=== PATIENT | male | born 1980 | race African-American/Black ===

== ENCOUNTER 2018-05-24 13:37 | Inpatient (IN) | payer OTHER ==
[2018-05-24 14:26] VITALS: BMI 29.4
--- NOTE | 2018-05-24 15:24 | HP ---
CIWA Score Nausea/Vomitin-No Nausea/No Vomiting Muscle Tremors: None Anxiety: 0-No Anxiety, at Ease Agitation: 0-Normal Activity Paroxysmal Sweats: No Perspiration Orientation: 0-Oriented Tacttile Disturbances: 0-None Auditory Disturbances: 0-None Visual Disturbances: 0-None Headache: 0-None Present CIWA-Ar Total Score: 0 - Admission Criteria OASAS Guidelines: Admission for Medically Managed Detox: Requires at least one of the followin. CIWA greater than 12 2. Seizures within the past 24 hours 3. Delirium tremens within the past 24 hours 4. Hallucinations within the past 24 hours 5. Acute intervention needed for co occurring medical disorder 6. Acute intervention needed for co occurring psychiatric disorder 7. Severe withdrawal that cannot be handled at a lower level of care (continued vomiting, continued diarrhea, abnormal vital signs) requiring intravenous medication and/or fluids 8. [facility] Allergies/Adverse Reactions: Allergies Allergy/AdvReac Type Severity Reaction Status Date / Time No Known Allergies Allergy Verified 05/24/18 16:57 History of Present Illness: pt here requesting detox from ETOH use , reports was at [facility] brought to this facility from ER . ETOH use : 2 beers for the past 5 days , prior incarceration at [facility] x 8 months , denies current legal issues . Currently asymptomatic cocaine : 80 $ /day , denies IVDU , first age of use 20 cannabis use : sicen age 13 , currently 2 joints in the last 5 days tobacco : daily 1/4-1/2 ppd . utox + thc, + abigail, + bzo jennyfer 0.000 PMHx : right inguinal and umbilical hernia current, reports discomfort w/ eating PSHx : left inguinal hernia in 20's psych : SAD Meds : in the past Zoloft , Seroquel , latest 2 d ago SHx : lives in skilled nursing , unemployed , finances habit through " multiple means " Exam Limitations: No Limitations - Ebola screening Have you traveled outside of the country in the last 21 days: No Have you had contact with anyone from an Ebola affected area: No Have you been sick,other than usual withdrawal symptoms: No - Review of Systems Constitutional: No Symptoms Reported EENT: reports: No Symptoms Reported Respiratory: reports: No Symptoms reported Cardiac: reports: No Symptoms Reported GI: reports: No Symptoms Reported : reports: No Symptoms Reported Musculoskeletal: reports: No Symptoms Reported Integumentary: reports: No Symptoms Reported Neuro: reports: No Symptoms reported Endocrine: reports: No Symptoms Reported Hematology: reports: No Symptoms Reported Psychiatric: reports: No Sypmtoms Reported Patient History - Patient Medical History Hx Anemia: Yes (NO CURRENT SUPPLEMENTS) Hx Asthma: Yes (MDI) Hx Chronic Obstructive Pulmonary Disease (COPD): No Hx Cardiac Disorders: No Hx Hypertension: No Hx Hypercholesterolemia: No HX Cerebrovascular Accident: No Hx Seizures: No Hx Diabetes: No Hx Gastrointestinal Disorders: No Hx Genitourinary Disorders: No Hx Sexually Transmitted Disorders: No Hx Renal Disease (ESRD): No Hx Thyroid Disease: No Hx Human Immunodeficiency Virus (HIV): No (NEGATIVE HX) Hx Hepatitis C: No Hx Depression: Yes (NO CURRENT MEDS BUT IN THE PAST---SEROQUEL AND ZOLOFT) Hx Suicide Attempt: No (DENIES PAST OR PRESENT /H/I TODAY) Hx Schizophrenia: Yes (schizoaffective disorder) - Patient Surgical History Past Surgical History: Yes Hx Neurologic Surgery: No Hx Cataract Extraction: No Hx Cardiac Surgery: No Hx Lung Surgery: No Hx Breast Surgery: No Hx Breast Biopsy: No Hx Abdominal Surgery: No Hx Appendectomy: No Hx Cholecystectomy: No Hx Genitourinary Surgery: No Hx Section: No Hx Orthopedic Surgery: No Other Surgical History: left inguinal hernia in 2003 Anesthesia Reaction: No - PPD History Date: 08/04/17 - Smoking Cessation Smoking history: Current every day smoker Have you smoked in the past 12 months: Yes Aproximately how many cigarettes per day: 20 Hx Chewing Tobacco Use: No Initiated information on smoking cessation: No - Substances Abused Crack Route: Smoking Frequency: Daily Amount used: $80-100 Age of first use: 20 Date of Last Use: 05/23/18 Marijuana Route: Smoking Frequency: 1-2 times per week Amount used: $10 Age of first use: 13 Date of Last Use: 05/23/18 Family Disease History - Family Disease History Family Disease History: CA: Grandparent ( ), Father (HTN;PROSTATE-ALIVE) , Mother (OVARIAN-ALIVE), Other: Father Admission Physical Exam BHS - Vital Signs Vital Signs: Vital Signs - 24 hr 05/24/18 14:24 Temperature 97 F L Pulse Rate 97 H Respiratory 18 Rate Blood Pressure 130/70 - Physical General Appearance: Yes: No Apparent Distress HEENTM: Yes: EOMI, Hearing grossly Normal, Normal ENT Inspection, Normocephalic , Normal Voice Respiratory: Yes: Chest Non-Tender, Lungs Clear, Normal Breath Sounds Neck: Yes: No masses,lesions,Nodules, Trachea in good position Breast: Yes: Breast Exam Deferred Cardiology: Yes: Regular Rhythm, Regular Rate, S1, S2 Abdominal: Yes: Hernia (right inguinal hernia , soft to palpation , large , no tenderness to palpation supra-umbilical hernia reducible, no tenderness to palpation. patient declined referral to ER at this time, states not interested in surgery , advised to see nursing/ medical staff for any symptoms - abdominal pain, nausea/ vomiting/ constipation . Patient verablizes undertadning and agreement .) Genitourinary: Yes: Within Normal Limits Back: Yes: Within Normal Limits Musculoskeletal: Yes: Within Normal Limits Extremities: Yes: Within Normal Limits, Normal Range of Motion Neurological: Yes: Fully Oriented, Alert, Motor Strength 5/5 Integumentary: Yes: Normal Color, Dry, Warm Lymphatic: Yes: Within Normal Limits - Diagnostic (1) Cocaine dependence, uncomplicated Current Visit: No Status: Chronic (2) Nicotine dependence Current Visit: No Status: Chronic Qualifiers: Nicotine product type: cigarettes Substance use status: uncomplicated Qualified Code(s): F17.210 - Nicotine dependence, cigarettes, uncomplicated BHS Breath Alcohol Content Breath Alcohol Content: 0 Urine Drug Screen - Results Drug Screen Negative: No Urine Drug Screen Results: THC-Marijuana, ABIGAIL-Cocaine, BZO-Benzodiazepines Inpatient Rehab Admission - Initial Determination Are CD services needed?: Yes Free of communicable disease: Yes Not in need of hospitalization: Yes - Rehab Admission Criteria Previous failed treatment: Yes Poor recovery environment: Yes Comorbidities: Yes Lacks judgement: Yes Patient is meeting Inpatient Rehab admission criteria:: Yes
[2018-05-24] MEDS ORDERED: MAGNESIUM HYDROX 2400MG/30ML ORAL SUSPENSION 30 ML CUP PO PRN (17:10)
[2018-05-24] MEDS ORDERED: MAG HYDROX/AL HYDROX/SIMETH 30 ML UNIT-DOSE CUP PO PRN (17:10)
[2018-05-24] MEDS ORDERED: ACETAMINOPHEN 325 MG TABLET (FP) PO PRN (17:10)
[2018-05-24] MEDS ORDERED: guaiFENesin/D-METHORPHAN HB 10 ML UNIT-DOSE CUPS PO PRN (17:10)
[2018-05-24] MEDS ORDERED: IBUPROFEN 400 MG TABLET (FP) PO PRN (17:10)
[2018-05-24] MEDS ORDERED: MAGNESIUM CITRATE 300 ML BOTTLE PO PRN (17:10)
[2018-05-24] MEDS ORDERED: P-EPHED 60MG/TRIPROLIDI 2.5MG TABLET PO PRN (17:10)
[2018-05-24] MEDS ORDERED: MELATONIN 5 MG TABLETS PO PRN (22:00)
[2018-05-24] MEDS: THIAMINE HCL 100 MG TABLET (FP) PO SCH (22:12)
[2018-05-25 01:39] LABS: URINE APPEARANCE CLEAR; URINE BILIRUBIN NEGATIVE (<2.0 mg/dL); URINE COLOR YELLOW; URINE GLUCOSE (UA) NEGATIVE (NEGATIVE); URINE KETONE 2+ (NEGATIVE); URINE LEUK ESTERASE NEGATIVE (NEGATIVE); URINE NITRITE NEGATIVE (NEGATIVE); URINE PROTEIN 1+ (NEGATIVE); URINE UROBILINOGEN 4.0 E.U/dl mg/dL (0.2-1.0)
[2018-05-25 02:05] LABS: EPI CELLS RARE /HPF (FEW); URINE MUCUS MANY
--- NOTE | 2018-05-25 08:23 | HP ---
Psychiatrist Admission - Data Date of interview: 05/25/18 Admission source: [facility] Identifying data: This is the first [facility] admission for this 37 years old single Black male, father of 2 children, unemployed on public assistance, homeless Medical History: Significant for anemia, bronchial asthma, right inguinal and umbilical hernias and a history of left inguinal herniorraphy. Smokes cigaretted 1 ppd Psychiatric History: Patient reports being diagnosed with Schizoaffective Disorder in his 20's when he was admitted to a psychiatric hospital for visual hallucinations. He has no recollection of that hospital name or location. Reports multiple subsequent admissions to various facilities including to [facility], [facility] and most recently approximately 8 months ago to [facility]. Reports that he was incarcerated from 09/14/17 to . Told lead technical writer that he saw a psychiatrist while in correction and was prescribed Zoloft 50 mg po daily and Seroquel 300 mg po HS. Before going to correction, he attended [facility] in [place]. Denies history of suicidal attempt. At present, reports feeling depressed and sleeping poorly. However, denies wxperiencing psychotic or manic symptoms, S/H ideations Physical/Sexual Abuse/Trauma History: Denies history of emotional, physical or sexual abuse as well as DV relationship. No service Additional Comment: Reports history of multiple previous arrests including 2 felony convictions. No parole/probation at present Vital Signs: Vital Signs - 24 hr 05/24/18 05/24/18 05/25/18 14:24 18:00 00:30 Temperature 97 F L 98.0 F Pulse Rate 97 H 92 H Respiratory 18 Rate Blood Pressure 130/70 109/70 05/25/18 06:48 Temperature 98.4 F Pulse Rate 90 Respiratory 19 Rate Blood Pressure 114/66 Allergies/Adverse Reactions: Allergies Allergy/AdvReac Type Severity Reaction Status Date / Time No Known Allergies Allergy Verified 05/24/18 16:57 Date of last physical exam: 05/24/18 Concur with the findings of this exam: Yes - Substance Abuse/Tx History Hx Alcohol Use: Yes Hx Substance Use: Yes Substance Use Type: Alcohol (Started drinking alcohol at age 13, consumes 2-3 pints of vodka & a 6pk of beer daily), Cocaine (Started smoking crack cocaine at age 20, consumes $80-100worth daily. Last smoked on 05/23/18), Marijuana ( Started smoking marijuana at age 13, consumes $10 worth 1-2 times weekly. Last smoked on 05/23/18) Hx Substance Use Treatment: Yes (5-6 previous & 5 inpt rehab admissions) Mental Status Exam - Mental Status Exam Alert and Oriented to: Time, Place, Person Cognitive Function: Fair Patient Appearance: Well Groomed Mood: Depressed Affect: Appropriate Patient Behavior: Cooperative Speech Pattern: Clear Voice Loudness: Normal Thought Process: Intact Thought Disorder: Not Present Hallucinations: Denies Suicidal Ideation: Denies Homicidal Ideation: Denies Insight/Judgement: Fair Sleep: Poorly Appetite: Fair Muscle strength/Tone: Normal Gait/Station: Normal Psychiatric Findings - Problem List (Clark 1, 2,3) (1) Alcohol dependence Current Visit: Yes Status: Acute (2) Cocaine dependence Current Visit: Yes Status: Acute (3) Cannabis dependence Current Visit: Yes Status: Acute (4) Nicotine dependence Current Visit: Yes Status: Chronic (5) Schizoaffective disorder Current Visit: No Status: Chronic Comment: As per self-report.Patient is on medications.Known to [facility]. (6) Substance induced mood disorder Current Visit: Yes Status: Acute (7) Substance-induced sleep disorder Current Visit: Yes Status: Acute (8) Asthma Current Visit: No Status: Chronic Qualifiers: Asthma severity: mild Asthma persistence: unspecified Asthma complication type: uncomplicated Qualified Code(s): J45.909 - Unspecified asthma, uncomplicated (9) Anemia Current Visit: Yes Status: Acute (10) Inguinal hernia, right Current Visit: Yes Status: Acute (11) Umbilical hernia Current Visit: Yes Status: Acute - Initial Treatment Plan Initial Treatment Plan: 1) Continue Zoloft 50 mg po daily and Seroquel 300 mg po HS. 2) Monitor progress
[2018-05-25 10:08] LABS: HEMATOCRIT 44.2 % (35.4-49); HEMOGLOBIN 14.5 GM/dL (11.7-16.9); MCH 28.7 pg (25.7-33.7); MCHC 32.7 g/dl (32.0-35.9); MEAN CELL VOLUME 87.7 fl (80-96); MEAN PLT VOLUME 7.7 fl (7.5-11.1); PLATELET COUNT 294 K/MM3 (134-434); RBC 5.04 M/mm3 (4.00-5.60); RDW 14.3 % (11.9-15.9); WHITE BLOOD COUNT 5.4 K/mm3 (4.0-10.0)
[2018-05-25] MEDS: PRENATAL VITAMINS W/ FOLIC ACID TABLET (FP) PO SCH (10:41)
[2018-05-25] MEDS: SERTRALINE HCL 50 MG TABLET (FP) PO SCH (10:41)
--- NOTE | 2018-05-25 11:30 | PN ---
S Progress Note Note: PT C/O RIGHT GROIN PAIN. HX RIGHT INGUINAL HERNIA AND LEFT INGUINAL HERNIA REPAIR IN THE PAST. PT WAS ADMITTED YESTERDAY AND REPORTS DISCOMFORT UNCHANGED FROM YESTERDAY ON ADMISSION BUT WANTS CANE FOR AMBULATION BECAUSE FORGOT HIS CANE. AMBULATING WITH A BEND FORWARD GAIT INTERMITTENTLY WHEN FEELING PAIN WHICH HE PUTS AT A SCALE OF 5, 6 OR 7. PT REPORTS HAS CONDITION WHILE 8 MONTHS IN [facility] AND JUST GOT OUT AND NOT CONNECTED TO A MEDICAL PROVIDER YET. PT REPORTS HOWEVER THAT [facility] IS AN OPTION FOR HIM TO FOLLOW UP ROUTINELY AFTER REHAB TREATMENT. PT WAS INFORMED HE COULD BE SENT TO [facility] ED FOR EVALUATION BUT HE STATES "I'LL BE OK'. IT IS NOT ALL THAT BAD". PT DENIES N/ V OR FEVER. PT HAS BEEN TOLD THAT IF CONDITION CHANGES HE SHOULD INFORM THE STAFF FOR TRANSFER TO THE ED. Vital Signs 05/25/18 06:48 Temperature 98.4 F Pulse Rate 90 Respiratory 19 Rate Blood Pressure 114/66 Laboratory Tests 05/24/18 05/25/18 23:45 07:00 WBC 5.4 RBC 5.04 Hgb 14.5 Hct 44.2 MCV 87.7 MCH 28.7 MCHC 32.7 RDW 14.3 Plt Count 294 MPV 7.7 Urine Color Yellow Urine Appearance Clear Urine pH 6.0 Ur Specific [place] 1.033 Urine Protein 1+ H Urine Glucose (UA) Negative Urine Ketones 2+ H Urine Blood Negative Urine Nitrite Negative Urine Bilirubin Negative Urine Urobilinogen 4.0 e.u/dl Ur Leukocyte Esterase Negative Urine WBC (Auto) 1 Urine RBC (Auto) <1 Ur Epithelial Cells Rare Urine Mucus Many LABS NOTED ABOVE, WNL GROIN:LARGE PAINFUL BULGE TO RIGHT INGUINAL AREA ON STANDING/PALPATION. IMPRESSION:ENLARGED RIGHT INGUINAL HERNIA WITH PAIN. NOT STRANGULATED PLAN:INSTRUCTED PT NOT TO LIFT REPORT N/V REPORT MODERATE TO SEVER PAIN TRANSFER PT TO [facility] IF CONDITION CHANGES.
[2018-05-25 11:40] LABS: ALBUMIN 3.4 g/dl (3.4-5.0); ALK PHOS 74 U/L (45-117); ANION GAP 7 MMOL/L (8-16); BILIRUBIN,TOTAL 0.4 mg/dL (0.2-1); BLOOD UREA NITROGEN 13 mg/dL (7-18); CALCIUM 8.2 mg/dL (8.5-10.1); CHLORIDE 107 mmol/L (98-107); CO2 24 mmol/L (21-32); CREATININE 0.8 mg/dL (0.55-1.3); GLUCOSE,RANDOM 94 mg/dL (74-106); POTASSIUM 4.6 mmol/L (3.5-5.1); SGOT/AST 24 U/L (15-37); SGPT/ALT 39 U/L (13-61); SODIUM 138 mmol/L (136-145); TOT PROT 6.4 g/dl (6.4-8.2)
[2018-05-25] MEDS: THIAMINE HCL 100 MG TABLET (FP) PO SCH (21:23)
[2018-05-25] MEDS: QUEtiapine FUMARATE 300 MG TABLET PO SCH (21:23)
[2018-05-26] MEDS: PRENATAL VITAMINS W/ FOLIC ACID TABLET (FP) PO SCH (10:27)
[2018-05-26] MEDS: SERTRALINE HCL 50 MG TABLET (FP) PO SCH (10:27)
[2018-05-26] MEDS: MENTHOL/PHENOL 1 EACH UD MM PRN ×2 (10:28→21:39)
[2018-05-26] MEDS: THIAMINE HCL 100 MG TABLET (FP) PO SCH (21:38)
[2018-05-26] MEDS: QUEtiapine FUMARATE 300 MG TABLET PO SCH (21:38)
[2018-05-27] MEDS: PRENATAL VITAMINS W/ FOLIC ACID TABLET (FP) PO SCH (10:00)
[2018-05-27] MEDS: SERTRALINE HCL 50 MG TABLET (FP) PO SCH (10:00)
[2018-05-27] MEDS: THIAMINE HCL 100 MG TABLET (FP) PO SCH (21:26)
[2018-05-27] MEDS: QUEtiapine FUMARATE 300 MG TABLET PO SCH (21:26)
[2018-05-27] MEDS: MENTHOL/PHENOL 1 EACH UD MM PRN (21:27)
[2018-05-28] MEDS: PRENATAL VITAMINS W/ FOLIC ACID TABLET (FP) PO SCH (09:45)
[2018-05-28] MEDS: SERTRALINE HCL 50 MG TABLET (FP) PO SCH (09:45)
[2018-05-28] MEDS: THIAMINE HCL 100 MG TABLET (FP) PO SCH (21:26)
[2018-05-28] MEDS: QUEtiapine FUMARATE 300 MG TABLET PO SCH (21:27)
[2018-05-28] MEDS: MENTHOL/PHENOL 1 EACH UD MM PRN (21:28)
[2018-05-29] MEDS: PRENATAL VITAMINS W/ FOLIC ACID TABLET (FP) PO SCH (10:02)
[2018-05-29] MEDS: SERTRALINE HCL 50 MG TABLET (FP) PO SCH (10:02)
[2018-05-29] MEDS: QUEtiapine FUMARATE 300 MG TABLET PO SCH (21:23)
[2018-05-29] MEDS: THIAMINE HCL 100 MG TABLET (FP) PO SCH (21:23)
[2018-05-29] MEDS: MENTHOL/PHENOL 1 EACH UD MM PRN (21:24)
[2018-05-30 07:02] VITALS: BP 117/86; PULSE 83; TEMP 97.8
[2018-05-30] MEDS: SERTRALINE HCL 50 MG TABLET (FP) PO SCH (09:16)
[2018-05-30] MEDS: PRENATAL VITAMINS W/ FOLIC ACID TABLET (FP) PO SCH (09:16)
--- NOTE | 2018-05-30 10:10 | PN ---
[facility] Progress Note Note: PT REQUESTING TO LEAVE TREATMENT TODAY STATING HE WANTS TO GET THINGS DONE TODAY BEFORE THE HOLIDAYS. PT WAS ADMITTED 05/24/18. ALL EFFORTS BY THIS VEGETABLE LOADER AND NURSE,VAN ENCOURAGING PATIENT TO CONTINUE TREATMENT WAS UNSUCCESSFUL. PT IS AMBULATING UPRIGHT WITH NO DISCOMFORT AND HAS NOT COMPLAINED ABOUT HERNIA PAIN SINCE LAST EPISODE. PT STATES HE WILL FOLLOW UP WITH MEDICAL CARE AT [facility] AFTER DISCHARGE. ALERT O X 3. Vital Signs 05/30/18 05/30/18 03:30 07:00 Temperature 97.8 F Pulse Rate 83 Respiratory 18 18 Rate Blood Pressure 117/86 NAD PLAN:PT SIGNED OUT AMA REMINDED TO FOLLOW UP AT [facility] FOR PRIMARY CARE AND EVALUATION/TREATMENT OF RIGHT INGUINAL HERNIA PROBLEM IN 1-2 WEEKS AFTER DISCHARGE.
== END 2018-05-30 10:01 | disposition left against medical advice (07) | DRG 770 ==
LOC: YASAS 13:37 → Y5N 17:13
PROVIDERS: ADMIT Psychiatry & Neurology Psychiatry; ATTEND Psychiatry & Neurology Psychiatry
PROC: HZ42ZZZ Group Counseling for Substance Abuse Treatment, Cognitive-Behavioral (ICD-10-PCS; principal; 2018-05-24)
DX: F10.20 Alcohol dependence, uncomplicated (principal); F14.20 Cocaine dependence, uncomplicated; F12.20 Cannabis dependence, uncomplicated; F17.210 Nicotine dependence, cigarettes, uncomplicated; F25.9 Schizoaffective disorder, unspecified; F19.24 Other psychoactive substance dependence with psychoactive substance-induced mood disorder; F19.282 Other psychoactive substance dependence with psychoactive substance-induced sleep disorder; J45.909 Unspecified asthma, uncomplicated; D64.9 Anemia, unspecified; K40.90 Unilateral inguinal hernia, without obstruction or gangrene, not specified as recurrent; K42.9 Umbilical hernia without obstruction or gangrene; Z59.0 Homelessness
CPT/HCPCS: 36415; 80053; 81003; 81015; 85027; 86593

== ENCOUNTER 2018-07-13 08:24 | Inpatient (IN) | payer OTHER ==
[2018-07-13 08:50] VITALS: BMI 24.3
--- NOTE | 2018-07-13 08:58 | HP ---
CIWA Score Nausea/Vomitin Muscle Tremors: 2 Anxiety: 2 Agitation: 2 Paroxysmal Sweats: 1-Minimal Palms Moist Orientation: 0-Oriented Tacttile Disturbances: 1-Very Mild Itch/Numbness Auditory Disturbances: 1-Very Mild Visual Disturbances: 0-None Headache: 2-Mild CIWA-Ar Total Score: 13 - Admission Criteria OASAS Guidelines: Admission for Medically Managed Detox: Requires at least one of the followin. CIWA greater than 12 2. Seizures within the past 24 hours 3. Delirium tremens within the past 24 hours 4. Hallucinations within the past 24 hours 5. Acute intervention needed for co occurring medical disorder 6. Acute intervention needed for co occurring psychiatric disorder 7. Severe withdrawal that cannot be handled at a lower level of care (continued vomiting, continued diarrhea, abnormal vital signs) requiring intravenous medication and/or fluids 8. Patient presents the following: CIWA greater than 12 Admission Criteria Met: Admission criteria met Admission ROS BHS - HPI Chief Complaint: i need help to stop drinking alcohol,cocaine and marijuana Allergies/Adverse Reactions: Allergies Allergy/AdvReac Type Severity Reaction Status Date / Time No Known Allergies Allergy Verified 07/13/18 09:06 History of Present Illness: this 37 years old male with alcohol,cocaine and marijuana dependence,seeking detox,withdrawal symptom,last treatment rehab [facility] 05/24/18 to 05/30/18 syncope nicotine dependence weight loss longest period 3 years plan for rehab after detox Exam Limitations: No Limitations - Ebola screening Have you traveled outside of the country in the last 21 days: No Have you had contact with anyone from an Ebola affected area: No Have you been sick,other than usual withdrawal symptoms: No Do you have a fever: No - Review of Systems Constitutional: Malaise, Night Sweats, Changes in sleep, Weakness, Unintentional Wgt. Loss EENT: reports: Nose Congestion Respiratory: reports: No Symptoms reported Cardiac: reports: No Symptoms Reported GI: reports: Nausea, Vomiting, Abdominal cramping : reports: No Symptoms Reported Integumentary: reports: Dryness Neuro: reports: Headache, Tremors Endocrine: reports: No Symptoms Reported Hematology: reports: No Symptoms Reported Psychiatric: reports: No Sypmtoms Reported, Judgement Intact, Mood/Affect Appropiate, Orientated x3 Other Systems: Reviewed and Negative Patient History - Patient Medical History Hx Anemia: Yes (NO CURRENT SUPPLEMENTS) Hx Asthma: Yes (MDI) Hx Chronic Obstructive Pulmonary Disease (COPD): No Hx Cancer: No Hx Cardiac Disorders: No Hx Congestive Heart Failure: No Hx Hypertension: No Hx Hypercholesterolemia: No Hx Pacemaker: No HX Cerebrovascular Accident: No Hx Seizures: No Hx Dementia: No Hx Diabetes: No Hx Gastrointestinal Disorders: No Hx Liver Disease: No Hx Genitourinary Disorders: No Hx Sexually Transmitted Disorders: No Hx Renal Disease (ESRD): No Hx Thyroid Disease: No Hx Human Immunodeficiency Virus (HIV): No (NEGATIVE HX last 2017) Hx Hepatitis C: No Hx Depression: Yes (NO CURRENT MEDS BUT IN THE PAST---SEROQUEL AND ZOLOFT) Hx Suicide Attempt: No (DENIES PAST OR PRESENT /H/I TODAY) Hx Schizophrenia: Yes (schizoaffective disorder last medication 05/24) Other Medical History: no suicidal,no homicidal,fx of right clavicle at age of 17 years - Patient Surgical History Past Surgical History: Yes Hx Neurologic Surgery: No Hx Cataract Extraction: No Hx Cardiac Surgery: No Hx Lung Surgery: No Hx Breast Surgery: No Hx Breast Biopsy: No Hx Abdominal Surgery: No Hx Appendectomy: No Hx Cholecystectomy: No Hx Genitourinary Surgery: No Hx Section: No Hx Orthopedic Surgery: No Other Surgical History: left inguinal hernia in 2003,right inguinal hernia, epigastric hernia Anesthesia Reaction: No - PPD History Previous Implant?: Yes Documented Results: Negative w/proof Date: 08/04/17 Results: 0 mm PPD to be Administered?: No - Smoking Cessation Smoking history: Current every day smoker Have you smoked in the past 12 months: Yes Aproximately how many cigarettes per day: 10 Hx Chewing Tobacco Use: No Initiated information on smoking cessation: Yes 'Breaking Loose' booklet given: 07/13/18 - Substance & Tx. History Hx Alcohol Use: Yes Hx Substance Use: Yes Substance Use Type: Alcohol, Cocaine, Marijuana Hx Substance Use Treatment: Yes ([facility] 05/14/18 to 05/30/18 rehab) - Substances Abused Alcohol Route: Oral Frequency: Daily Amount used: 4 of 40 ozs of malt liquor Age of first use: 13 Date of Last Use: 07/13/18 Cocaine Route: Smoking Frequency: Daily Amount used: 100$ Age of first use: 20 Date of Last Use: 07/08/18 Marijuana/Hashish Route: Smoking Frequency: Daily Amount used: 10$ Age of first use: 11 Date of Last Use: 07/13/18 Family Disease History - Family Disease History Family Disease History: CA: Grandparent ( ), Father (HTN;PROSTATE-ALIVE, dsa,sober), Mother (OVARIAN-ALIVE), Other: Father Admission Physical Exam BHS - Vital Signs Vital Signs: Vital Signs - 24 hr 07/13/18 08:47 Temperature 97.5 F L Pulse Rate 87 Respiratory 20 Rate Blood Pressure 132/71 - Physical General Appearance: Yes: Moderate Distress, Tremorous, Irritable, Sweating, Anxious HEENTM: Yes: Normal ENT Inspection, JHONY, Pharynx Normal Respiratory: Yes: Lungs Clear, Normal Breath Sounds, No Respiratory Distress Neck: Yes: Within Normal Limits, Supple, Trachea in good position Breast: Yes: Within Normal Limits Cardiology: Yes: Within Normal Limits, Regular Rhythm, Regular Rate, S1, S2 Abdominal: Yes: Normal Bowel Sounds, Non Tender, Flat, Soft, Surgical Scar ( right inguinal hernia epigastric hernia) Genitourinary: Yes: Within Normal Limits Back: Yes: Muscle Spasm Musculoskeletal: Yes: full range of Motion, Back pain, Muscle Pain Extremities: Yes: Tremors Neurological: Yes: sleep lab technologist II-XII NML intact, Fully Oriented, Alert, Motor Strength 5/5 Integumentary: Yes: Dry Lymphatic: Yes: Within Normal Limits - Diagnostic (1) Alcohol dependence with uncomplicated withdrawal Current Visit: Yes Status: Acute (2) Alcohol dependence with uncomplicated withdrawal Current Visit: No Status: Chronic (3) Cannabis dependence Current Visit: No Status: Acute (4) Cocaine dependence Current Visit: No Status: Acute (5) Asthma Current Visit: No Status: Chronic Qualifiers: Asthma severity: mild Asthma persistence: unspecified Asthma complication type: uncomplicated Qualified Code(s): J45.909 - Unspecified asthma, uncomplicated (6) Nicotine dependence Current Visit: No Status: Chronic Qualifiers: Nicotine product type: cigarettes Substance use status: uncomplicated Qualified Code(s): F17.210 - Nicotine dependence, cigarettes, uncomplicated (7) Schizoaffective disorder Current Visit: No Status: Chronic Comment: As per self-report.Patient is on medications.Known to [facility]. (8) Epigastric hernia Current Visit: Yes Status: Acute (9) Weight loss Current Visit: Yes Status: Acute (10) Syncope Current Visit: Yes Status: Acute Cleared for Admission S - Detox or Rehab [facility] Level of Care: Medically Managed Detox Regimen/Protocol: Librium [facility] Breath Alcohol Content Breath Alcohol Content: 0.078 Urine Drug Screen - Results Drug Screen Negative: No Urine Drug Screen Results: THC-Marijuana, RY-Cocaine
[2018-07-13] MEDS ORDERED: P-EPHED 60MG/TRIPROLIDI 2.5MG TABLET PO PRN (09:16)
[2018-07-13] MEDS ORDERED: ACETAMINOPHEN 325 MG TABLET (FP) PO PRN (09:16)
[2018-07-13] MEDS ORDERED: chlordiazePOXIDE HCL 25 MG CAPSULE PO PRN (09:16)
[2018-07-13] MEDS ORDERED: LOPERAMIDE HCL 2 MG CAPSULE PO PRN (09:16)
[2018-07-13] MEDS ORDERED: hydrOXYzine PAMOATE 25 MG CAPSULE (FP) PO PRN (09:16)
[2018-07-13] MEDS ORDERED: MAGNESIUM CITRATE 300 ML BOTTLE PO PRN (09:16)
[2018-07-13] MEDS ORDERED: MAG HYDROX/AL HYDROX/SIMETH 30 ML UNIT-DOSE CUP PO PRN (09:16)
[2018-07-13] MEDS ORDERED: MENTHOL/PHENOL 1 EACH UD MM PRN (09:16)
[2018-07-13] MEDS ORDERED: MAGNESIUM HYDROX 2400MG/30ML ORAL SUSPENSION 30 ML CUP PO PRN (09:16)
[2018-07-13] MEDS ORDERED: IBUPROFEN 400 MG TABLET (FP) PO PRN (09:16)
[2018-07-13] MEDS ORDERED: guaiFENesin/D-METHORPHAN HB 10 ML UNIT-DOSE CUPS PO PRN (09:16)
[2018-07-13] MEDS: NICOTINE 21 MG/24 HOURS TOPICAL PATCH TD SCH (10:15)
[2018-07-13] MEDS: PRENATAL VITAMINS W/ FOLIC ACID TABLET (FP) PO SCH (10:15)
[2018-07-13] MEDS: chlordiazePOXIDE HCL 25 MG CAPSULE PO SCH ×3 (10:15→22:09)
[2018-07-13 17:38] LABS: URINE APPEARANCE CLEAR; URINE BILIRUBIN NEGATIVE (<2.0 mg/dL); URINE COLOR YELLOW; URINE GLUCOSE (UA) NEGATIVE (NEGATIVE); URINE KETONE TRACE (NEGATIVE); URINE LEUK ESTERASE NEGATIVE (NEGATIVE); URINE NITRITE NEGATIVE (NEGATIVE); URINE PROTEIN NEGATIVE (NEGATIVE)
[2018-07-13] MEDS: MELATONIN 5 MG TABLETS PO PRN (22:09)
[2018-07-13] MEDS: THIAMINE HCL 100 MG TABLET (FP) PO SCH (22:09)
[2018-07-14] MEDS: chlordiazePOXIDE HCL 25 MG CAPSULE PO SCH ×4 (05:31→23:00)
[2018-07-14] MEDS: PRENATAL VITAMINS W/ FOLIC ACID TABLET (FP) PO SCH (10:22)
[2018-07-14] MEDS: NICOTINE 21 MG/24 HOURS TOPICAL PATCH TD SCH (10:22)
[2018-07-14 10:34] LABS: HEMATOCRIT 42.7 % (35.4-49); HEMOGLOBIN 14.6 GM/dL (11.7-16.9); MCH 30.2 pg (25.7-33.7); MCHC 34.3 g/dl (32.0-35.9); MEAN CELL VOLUME 88.1 fl (80-96); MEAN PLT VOLUME 8.3 fl (7.5-11.1); PLATELET COUNT 327 K/MM3 (134-434); RBC 4.85 M/mm3 (4.00-5.60); RDW 14.5 % (11.9-15.9); WHITE BLOOD COUNT 4.8 K/mm3 (4.0-10.0)
[2018-07-14 10:43] LABS: ALBUMIN 3.8 g/dl (3.4-5.0); ALK PHOS 84 U/L (45-117); ANION GAP 6 MMOL/L (8-16); BILIRUBIN,TOTAL 0.4 mg/dL (0.2-1); BLOOD UREA NITROGEN 8 mg/dL (7-18); CHLORIDE 107 mmol/L (98-107); CO2 27 mmol/L (21-32); CREATININE 0.8 mg/dL (0.55-1.3); GLUCOSE,RANDOM 111 mg/dL (74-106); POTASSIUM 3.9 mmol/L (3.5-5.1); SGOT/AST 18 U/L (15-37); SGPT/ALT 29 U/L (13-61); SODIUM 139 mmol/L (136-145); TOT PROT 6.8 g/dl (6.4-8.2)
[2018-07-14] MEDS: NICOTINE POLACRILEX 2 MG GUM BUC PRN (13:19)
--- NOTE | 2018-07-14 13:38 | PN ---
S CIWA - CIWA Score Nausea/Vomitin-Mild Nausea/No Vomiting Muscle Tremors: 3 Anxiety: 2 Agitation: 2 Paroxysmal Sweats: 1-Minimal Palms Moist Orientation: 1-Uncertain about Date Tacttile Disturbances: 0-None Auditory Disturbances: 0-None Visual Disturbances: 0-None Headache: 2-Mild CIWA-Ar Total Score: 12 S Progress Note (SOAP) Subjective: patient reported that he is taking zoloft and seruqoel for depression and anxiety and unstable mood patient met the psychiatric referral criteria tremor sweating restlessness anxiety Objective: 07/14/18 13:37 Vital Signs Temperature 98.2 F 07/14/18 13:27 Pulse Rate 88 07/14/18 13:27 Respiratory Rate 20 07/14/18 13:27 Blood Pressure 136/84 07/14/18 13:27 O2 Sat by Pulse Oximetry (%) Laboratory Last Values WBC 4.8 K/mm3 (4.0-10.0) 07/14/18 06:00 RBC 4.85 M/mm3 (4.00-5.60) 07/14/18 06:00 Hgb 14.6 GM/dL (11.7-16.9) 07/14/18 06:00 Hct 42.7 % (35.4-49) 07/14/18 06:00 MCV 88.1 fl (80-96) 07/14/18 06:00 MCH 30.2 pg (25.7-33.7) 07/14/18 06:00 MCHC 34.3 g/dl (32.0-35.9) 07/14/18 06:00 RDW 14.5 % (11.9-15.9) 07/14/18 06:00 Plt Count 327 K/MM3 (134-434) 07/14/18 06:00 MPV 8.3 fl (7.5-11.1) 07/14/18 06:00 Sodium 139 mmol/L (136-145) 07/14/18 06:00 Potassium 3.9 mmol/L (3.5-5.1) 07/14/18 06:00 Chloride 107 mmol/L (98-107) 07/14/18 06:00 Carbon Dioxide 27 mmol/L (21-32) 07/14/18 06:00 Anion Gap 6 MMOL/L (8-16) L 07/14/18 06:00 BUN 8 mg/dL (7-18) 07/14/18 06:00 Creatinine 0.8 mg/dL (0.55-1.3) 07/14/18 06:00 Creat Clearance w eGFR > 60 (>60) 07/14/18 06:00 Random Glucose 111 mg/dL (74-106) H 07/14/18 06:00 Calcium 9.0 mg/dL (8.5-10.1) 07/14/18 06:00 Total Bilirubin 0.4 mg/dL (0.2-1) 07/14/18 06:00 AST 18 U/L (15-37) 07/14/18 06:00 ALT 29 U/L (13-61) 07/14/18 06:00 Alkaline Phosphatase 84 U/L (45-117) 07/14/18 06:00 Total Protein 6.8 g/dl (6.4-8.2) 07/14/18 06:00 Albumin 3.8 g/dl (3.4-5.0) 07/14/18 06:00 Urine Color Yellow 07/13/18 15:30 Urine Appearance Clear 07/13/18 15:30 Urine pH 6.0 (5.0-8.0) 07/13/18 15:30 Ur Specific [place] 1.023 (1.010-1.035) 07/13/18 15:30 Urine Protein Negative (NEGATIVE) 07/13/18 15:30 Urine Glucose (UA) Negative (NEGATIVE) 07/13/18 15:30 Urine Ketones Trace (NEGATIVE) H 07/13/18 15:30 Urine Blood Negative (NEGATIVE) 07/13/18 15:30 Urine Nitrite Negative (NEGATIVE) 07/13/18 15:30 Urine Bilirubin Negative (<2.0 mg/dL) 07/13/18 15:30 Urine Urobilinogen 2.0 mg/dL (0.2-1.0) 07/13/18 15:30 Ur Leukocyte Esterase Negative (NEGATIVE) 07/13/18 15:30 RPR Titer Nonreactive (NONREACTIVE) 07/14/18 06:00 lab noted Assessment: withdrawal sx Plan: continue detox psychiatric referral
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
[2018-07-14] MEDS: QUEtiapine FUMARATE 100 MG TABLET (FP) PO SCH (23:00)
[2018-07-14] MEDS: THIAMINE HCL 100 MG TABLET (FP) PO SCH (23:00)
[2018-07-14] MEDS: MELATONIN 5 MG TABLETS PO PRN (23:00)
[2018-07-15] MEDS: chlordiazePOXIDE HCL 25 MG CAPSULE PO SCH (06:52)
[2018-07-15] MEDS: SERTRALINE HCL 50 MG TABLET (FP) PO SCH (10:22)
[2018-07-15] MEDS: chlordiazePOXIDE 5 MG CAPSULE PO SCH ×3 (10:22→22:34)
[2018-07-15] MEDS: PRENATAL VITAMINS W/ FOLIC ACID TABLET (FP) PO SCH (10:22)
[2018-07-15] MEDS: NICOTINE 21 MG/24 HOURS TOPICAL PATCH TD SCH (10:23)
--- NOTE | 2018-07-15 17:22 | PN ---
S CIWA - CIWA Score Nausea/Vomitin-No Nausea/No Vomiting Muscle Tremors: 3 Anxiety: 3 Agitation: 0-Normal Activity Paroxysmal Sweats: 3 Orientation: 0-Oriented Tacttile Disturbances: 3-Moderate Itch/Numb/Burn Auditory Disturbances: 0-None Visual Disturbances: 1-Very Mild Sensitivity Headache: 0-None Present CIWA-Ar Total Score: 13 BHS Progress Note (SOAP) Subjective: Tremors, Sweating, Anxious, Fatigue. Objective: PATIENT A & O X 3. IN NO ACUTE DISTRESS. 07/15/18 17:19 Vital Signs Temperature 99.0 F 07/15/18 13:15 Pulse Rate 94 H 07/15/18 13:15 Respiratory Rate 18 07/15/18 13:15 Blood Pressure 124/87 07/15/18 13:15 O2 Sat by Pulse Oximetry (%) Laboratory Tests 07/13/18 07/14/18 07/14/18 15:30 06:00 06:00 WBC 4.8 RBC 4.85 Hgb 14.6 Hct 42.7 MCV 88.1 MCH 30.2 MCHC 34.3 RDW 14.5 Plt Count 327 MPV 8.3 Sodium 139 Potassium 3.9 Chloride 107 Carbon Dioxide 27 Anion Gap 6 L BUN 8 Creatinine 0.8 Creat Clearance w eGFR > 60 Random Glucose 111 H Calcium 9.0 Total Bilirubin 0.4 AST 18 ALT 29 Alkaline Phosphatase 84 Total Protein 6.8 Albumin 3.8 Urine Color Yellow Urine Appearance Clear Urine pH 6.0 Ur Specific [place] 1.023 Urine Protein Negative Urine Glucose (UA) Negative Urine Ketones Trace H Urine Blood Negative Urine Nitrite Negative Urine Bilirubin Negative Urine Urobilinogen 2.0 Ur Leukocyte Esterase Negative RPR Titer 07/14/18 06:00 WBC RBC Hgb Hct MCV MCH MCHC RDW Plt Count MPV Sodium Potassium Chloride Carbon Dioxide Anion Gap BUN Creatinine Creat Clearance w eGFR Random Glucose Calcium Total Bilirubin AST ALT Alkaline Phosphatase Total Protein Albumin Urine Color Urine Appearance Urine pH Ur Specific [place] Urine Protein Urine Glucose (UA) Urine Ketones Urine Blood Urine Nitrite Urine Bilirubin Urine Urobilinogen Ur Leukocyte Esterase RPR Titer Nonreactive LABS NOTED. Assessment: 07/15/18 17:20 WITHDRAWAL SYMPTOMS. Plan: CONTINUE DETOX.
[2018-07-15] MEDS ORDERED: PT OWN MED DRAWER 7, Y5N ONE (21:31)
[2018-07-15] MEDS: METHYL SALICYLATE/MENTHOL OINT 30 GM TUBE TP SCH (22:33)
[2018-07-15] MEDS: THIAMINE HCL 100 MG TABLET (FP) PO SCH (22:34)
[2018-07-15] MEDS: QUEtiapine FUMARATE 100 MG TABLET (FP) PO SCH (22:34)
[2018-07-15] MEDS: NICOTINE POLACRILEX 2 MG GUM BUC PRN (22:34)
[2018-07-16] MEDS: chlordiazePOXIDE 5 MG CAPSULE PO SCH (05:50)
[2018-07-16] MEDS: NICOTINE 21 MG/24 HOURS TOPICAL PATCH TD SCH (10:50)
[2018-07-16] MEDS: PRENATAL VITAMINS W/ FOLIC ACID TABLET (FP) PO SCH (10:50)
[2018-07-16] MEDS: SERTRALINE HCL 50 MG TABLET (FP) PO SCH (10:50)
[2018-07-16] MEDS: METHYL SALICYLATE/MENTHOL OINT 30 GM TUBE TP SCH ×2 (10:50→22:05)
[2018-07-16] MEDS: chlordiazePOXIDE HCL 10 MG CAPSULE PO SCH ×3 (10:53→22:04)
--- NOTE | 2018-07-16 15:05 | PN ---
BHS Progress Note (SOAP) Subjective: Sweating, Anxious. Objective: PATIENT A & O X 3. IN NO ACUTE DISTRESS. 07/16/18 15:05 Vital Signs Temperature 96.8 F L 07/16/18 13:36 Pulse Rate 82 07/16/18 13:36 Respiratory Rate 18 07/16/18 13:36 Blood Pressure 121/67 07/16/18 13:36 O2 Sat by Pulse Oximetry (%) Laboratory Tests 07/13/18 07/14/18 07/14/18 15:30 06:00 06:00 WBC 4.8 RBC 4.85 Hgb 14.6 Hct 42.7 MCV 88.1 MCH 30.2 MCHC 34.3 RDW 14.5 Plt Count 327 MPV 8.3 Sodium 139 Potassium 3.9 Chloride 107 Carbon Dioxide 27 Anion Gap 6 L BUN 8 Creatinine 0.8 Creat Clearance w eGFR > 60 Random Glucose 111 H Calcium 9.0 Total Bilirubin 0.4 AST 18 ALT 29 Alkaline Phosphatase 84 Total Protein 6.8 Albumin 3.8 Urine Color Yellow Urine Appearance Clear Urine pH 6.0 Ur Specific [place] 1.023 Urine Protein Negative Urine Glucose (UA) Negative Urine Ketones Trace H Urine Blood Negative Urine Nitrite Negative Urine Bilirubin Negative Urine Urobilinogen 2.0 Ur Leukocyte Esterase Negative RPR Titer 07/14/18 06:00 WBC RBC Hgb Hct MCV MCH MCHC RDW Plt Count MPV Sodium Potassium Chloride Carbon Dioxide Anion Gap BUN Creatinine Creat Clearance w eGFR Random Glucose Calcium Total Bilirubin AST ALT Alkaline Phosphatase Total Protein Albumin Urine Color Urine Appearance Urine pH Ur Specific [place] Urine Protein Urine Glucose (UA) Urine Ketones Urine Blood Urine Nitrite Urine Bilirubin Urine Urobilinogen Ur Leukocyte Esterase RPR Titer Nonreactive LABS NOTED. Assessment: 07/16/18 15:05 WITHDRAWAL SYMPTOMS. Plan: CONTINUE DETOX.
[2018-07-16] MEDS: QUEtiapine FUMARATE 100 MG TABLET (FP) PO SCH (22:04)
[2018-07-16] MEDS: THIAMINE HCL 100 MG TABLET (FP) PO SCH (22:04)
[2018-07-17 06:16] VITALS: BP 91/62; PULSE 77; TEMP 98
[2018-07-17] MEDS: chlordiazePOXIDE HCL 10 MG CAPSULE PO SCH (06:44)
--- NOTE | 2018-07-17 08:38 | DS ---
[facility] Detox Discharge Summary Admission Date: 07/13/18 Discharge Date: 07/17/18 - History Present History: Alcohol Dependence Additional Comments: 37 years old male admitted on 07/13/18 for alcohol withdrawal stabilization completed detox regimen [facility] - Physical Exam Results Vital Signs: Vital Signs Temperature 98 F 07/17/18 06:16 Pulse Rate 77 07/17/18 06:16 Respiratory Rate 16 07/17/18 06:16 Blood Pressure 91/62 07/17/18 06:16 O2 Sat by Pulse Oximetry (%) Pertinent Admission Physical Exam Findings: alcohol withdrawal sx Laboratory Last Values WBC 4.8 K/mm3 (4.0-10.0) 07/14/18 06:00 RBC 4.85 M/mm3 (4.00-5.60) 07/14/18 06:00 Hgb 14.6 GM/dL (11.7-16.9) 07/14/18 06:00 Hct 42.7 % (35.4-49) 07/14/18 06:00 MCV 88.1 fl (80-96) 07/14/18 06:00 MCH 30.2 pg (25.7-33.7) 07/14/18 06:00 MCHC 34.3 g/dl (32.0-35.9) 07/14/18 06:00 RDW 14.5 % (11.9-15.9) 07/14/18 06:00 Plt Count 327 K/MM3 (134-434) 07/14/18 06:00 MPV 8.3 fl (7.5-11.1) 07/14/18 06:00 Sodium 139 mmol/L (136-145) 07/14/18 06:00 Potassium 3.9 mmol/L (3.5-5.1) 07/14/18 06:00 Chloride 107 mmol/L (98-107) 07/14/18 06:00 Carbon Dioxide 27 mmol/L (21-32) 07/14/18 06:00 Anion Gap 6 MMOL/L (8-16) L 07/14/18 06:00 BUN 8 mg/dL (7-18) 07/14/18 06:00 Creatinine 0.8 mg/dL (0.55-1.3) 07/14/18 06:00 Creat Clearance w eGFR > 60 (>60) 07/14/18 06:00 Random Glucose 111 mg/dL (74-106) H 07/14/18 06:00 Calcium 9.0 mg/dL (8.5-10.1) 07/14/18 06:00 Total Bilirubin 0.4 mg/dL (0.2-1) 07/14/18 06:00 AST 18 U/L (15-37) 07/14/18 06:00 ALT 29 U/L (13-61) 07/14/18 06:00 Alkaline Phosphatase 84 U/L (45-117) 07/14/18 06:00 Total Protein 6.8 g/dl (6.4-8.2) 07/14/18 06:00 Albumin 3.8 g/dl (3.4-5.0) 07/14/18 06:00 Urine Color Yellow 07/13/18 15:30 Urine Appearance Clear 07/13/18 15:30 Urine pH 6.0 (5.0-8.0) 07/13/18 15:30 Ur Specific [place] 1.023 (1.010-1.035) 07/13/18 15:30 Urine Protein Negative (NEGATIVE) 07/13/18 15:30 Urine Glucose (UA) Negative (NEGATIVE) 07/13/18 15:30 Urine Ketones Trace (NEGATIVE) H 07/13/18 15:30 Urine Blood Negative (NEGATIVE) 07/13/18 15:30 Urine Nitrite Negative (NEGATIVE) 07/13/18 15:30 Urine Bilirubin Negative (<2.0 mg/dL) 07/13/18 15:30 Urine Urobilinogen 2.0 mg/dL (0.2-1.0) 07/13/18 15:30 Ur Leukocyte Esterase Negative (NEGATIVE) 07/13/18 15:30 RPR Titer Nonreactive (NONREACTIVE) 07/14/18 06:00 lab noted - Treatment Hospital Course: Detox Protocol Followed, Detoxed Safely, Responded well, Discharged Condition Good, Rehab Referral Accepted Patient has Accepted a Rehab Referral to: [facility] - Medication Discharge Medications: Ambulatory Orders Sertraline HCl [Zoloft -] 50 mg PO DAILY #30 tablet 08/02/17 Quetiapine Fumarate [Seroquel] 300 mg PO HS 05/24/18 - Diagnosis (1) Alcohol dependence with uncomplicated withdrawal Status: Acute (2) Substance induced mood disorder Status: Suspected (3) Asthma Status: Chronic Qualifiers: Asthma severity: mild Asthma persistence: intermittent Asthma complication type: uncomplicated Qualified Code(s): J45.20 - Mild intermittent asthma, uncomplicated (4) Nicotine dependence Status: Acute Qualifiers: Nicotine product type: cigarettes Substance use status: in withdrawal Qualified Code(s): F17.213 - Nicotine dependence, cigarettes, with withdrawal - AMA Did Patient Leave Against Medical Advice: No
== END 2018-07-17 09:25 | disposition home or self-care (01) | DRG 774 ==
LOC: YASAS 08:24 → Y3N 09:29
PROVIDERS: ADMIT Surgery; ATTEND Surgery
PROC: HZ2ZZZZ Detoxification Services for Substance Abuse Treatment (ICD-10-PCS; principal; 2018-07-13)
DX: F10.230 Alcohol dependence with withdrawal, uncomplicated (principal); F14.20 Cocaine dependence, uncomplicated; F12.20 Cannabis dependence, uncomplicated; F17.213 Nicotine dependence, cigarettes, with withdrawal; F19.280 Other psychoactive substance dependence with psychoactive substance-induced anxiety disorder; F19.282 Other psychoactive substance dependence with psychoactive substance-induced sleep disorder; F19.24 Other psychoactive substance dependence with psychoactive substance-induced mood disorder; F25.9 Schizoaffective disorder, unspecified; J45.909 Unspecified asthma, uncomplicated; D64.9 Anemia, unspecified; R55 Syncope and collapse; K43.9 Ventral hernia without obstruction or gangrene; R63.4 Abnormal weight loss; Z68.24 Body mass index [BMI] 24.0-24.9, adult; Z59.0 Homelessness
CPT/HCPCS: 36415; 80053; 81003; 85027; 86593

== ENCOUNTER 2018-07-28 09:03 | Inpatient (IN) | payer OTHER ==
[2018-07-28 09:27] VITALS: BMI 24.3
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
[2018-07-28] MEDS ORDERED: LOPERAMIDE HCL 2 MG CAPSULE PO PRN (10:58)
[2018-07-28] MEDS ORDERED: MAGNESIUM HYDROX 2400MG/30ML ORAL SUSPENSION 30 ML CUP PO PRN (10:58)
[2018-07-28] MEDS ORDERED: ACETAMINOPHEN 325 MG TABLET (FP) PO PRN (10:58)
[2018-07-28] MEDS ORDERED: chlordiazePOXIDE HCL 25 MG CAPSULE PO PRN (10:58)
[2018-07-28] MEDS ORDERED: MAGNESIUM CITRATE 300 ML BOTTLE PO PRN (10:58)
[2018-07-28] MEDS ORDERED: guaiFENesin/D-METHORPHAN HB 10 ML UNIT-DOSE CUPS PO PRN (10:58)
[2018-07-28] MEDS ORDERED: P-EPHED 60MG/TRIPROLIDI 2.5MG TABLET PO PRN (10:58)
[2018-07-28] MEDS ORDERED: MAG HYDROX/AL HYDROX/SIMETH 30 ML UNIT-DOSE CUP PO PRN (10:58)
[2018-07-28] MEDS ORDERED: IBUPROFEN 400 MG TABLET (FP) PO PRN (10:58)
[2018-07-28] MEDS ORDERED: MENTHOL/PHENOL 1 EACH UD MM PRN (10:58)
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
[2018-07-28] MEDS: SERTRALINE HCL 50 MG TABLET (FP) PO SCH (14:21)
[2018-07-28] MEDS: NICOTINE 21 MG/24 HOURS TOPICAL PATCH TD SCH (14:23)
[2018-07-28] MEDS: chlordiazePOXIDE HCL 25 MG CAPSULE PO SCH ×2 (17:53→22:16)
[2018-07-28] MEDS ORDERED: MELATONIN 5 MG TABLETS PO PRN (22:00)
[2018-07-28] MEDS: THIAMINE HCL 100 MG TABLET (FP) PO SCH (22:15)
[2018-07-28] MEDS: QUEtiapine FUMARATE 300 MG TABLET PO SCH (22:16)
[2018-07-28] MEDS: NICOTINE POLACRILEX 2 MG GUM BC PRN (22:17)
[2018-07-29] MEDS: chlordiazePOXIDE HCL 25 MG CAPSULE PO SCH ×4 (05:38→22:24)
[2018-07-29 10:47] LABS: HEMATOCRIT 42.9 % (35.4-49); HEMOGLOBIN 14.7 GM/dL (11.7-16.9); MCH 30.4 pg (25.7-33.7); MCHC 34.3 g/dl (32.0-35.9); MEAN CELL VOLUME 88.5 fl (80-96); MEAN PLT VOLUME 8.3 fl (7.5-11.1); PLATELET COUNT 351 K/MM3 (134-434); RBC 4.85 M/mm3 (4.00-5.60); RDW 14.7 % (11.9-15.9); WHITE BLOOD COUNT 6.3 K/mm3 (4.0-10.0)
[2018-07-29] MEDS: SERTRALINE HCL 50 MG TABLET (FP) PO SCH (10:47)
[2018-07-29] MEDS: PRENATAL VITAMINS W/ FOLIC ACID TABLET (FP) PO SCH (10:48)
[2018-07-29] MEDS: NICOTINE 21 MG/24 HOURS TOPICAL PATCH TD SCH (10:49)
[2018-07-29 10:50] LABS: ALK PHOS 126 U/L (45-117); ANION GAP 7 MMOL/L (8-16); BILIRUBIN,TOTAL 0.2 mg/dL (0.2-1); BLOOD UREA NITROGEN 9 mg/dL (7-18); CALCIUM 9.4 mg/dL (8.5-10.1); CHLORIDE 103 mmol/L (98-107); CO2 28 mmol/L (21-32); CREATININE 0.8 mg/dL (0.55-1.3); GLUCOSE,RANDOM 116 mg/dL (74-106); POTASSIUM 4.1 mmol/L (3.5-5.1); SGOT/AST 44 U/L (15-37); SGPT/ALT 64 U/L (13-61); SODIUM 137 mmol/L (136-145)
--- NOTE | 2018-07-29 12:54 | PN ---
S CIWA - CIWA Score Nausea/Vomitin Muscle Tremors: 2 Anxiety: 1-Mildly Anxious Agitation: 2 Paroxysmal Sweats: 3 Orientation: 0-Oriented Tacttile Disturbances: 2-Mild Itch/Numbness/Burn Auditory Disturbances: 0-None Visual Disturbances: 0-None Headache: 0-None Present CIWA-Ar Total Score: 12 BHS Progress Note (SOAP) Subjective: interrupted sleep, sweats, watery stools Objective: 07/29/18 12:51 Vital Signs Temperature 98.1 F 07/29/18 08:50 Pulse Rate 83 07/29/18 08:50 Respiratory Rate 18 07/29/18 08:50 Blood Pressure 109/66 07/29/18 08:50 O2 Sat by Pulse Oximetry (%) Laboratory Tests 07/28/18 07/29/18 07/29/18 12:00 06:25 06:25 WBC 6.3 RBC 4.85 Hgb 14.7 Hct 42.9 MCV 88.5 MCH 30.4 MCHC 34.3 RDW 14.7 Plt Count 351 MPV 8.3 Sodium 137 Potassium 4.1 Chloride 103 Carbon Dioxide 28 Anion Gap 7 L BUN 9 Creatinine 0.8 Creat Clearance w eGFR > 60 Random Glucose 116 H Calcium 9.4 Total Bilirubin 0.2 AST 44 H ALT 64 H Alkaline Phosphatase 126 H Total Protein 7.0 Albumin 4.0 RPR Titer HIV 1&2 Antibody Screen Negative HIV P24 Antigen Negative 07/29/18 06:25 WBC RBC Hgb Hct MCV MCH MCHC RDW Plt Count MPV Sodium Potassium Chloride Carbon Dioxide Anion Gap BUN Creatinine Creat Clearance w eGFR Random Glucose Calcium Total Bilirubin AST ALT Alkaline Phosphatase Total Protein Albumin RPR Titer Nonreactive HIV 1&2 Antibody Screen HIV P24 Antigen pt aox3 in nad lying in bed Assessment: 07/29/18 12:52 withdrawal sx's mildly elevated transaminases 07/29/18 12:53 Plan: cont. detox increase fluids imodium prn
[2018-07-29] MEDS: QUEtiapine FUMARATE 300 MG TABLET PO SCH (22:24)
[2018-07-29] MEDS: THIAMINE HCL 100 MG TABLET (FP) PO SCH (22:24)
[2018-07-29] MEDS: NICOTINE POLACRILEX 2 MG GUM BC PRN (23:04)
[2018-07-30] MEDS: chlordiazePOXIDE HCL 25 MG CAPSULE PO SCH ×3 (06:28→11:05)
[2018-07-30] MEDS: PRENATAL VITAMINS W/ FOLIC ACID TABLET (FP) PO SCH (11:05)
[2018-07-30] MEDS: SERTRALINE HCL 50 MG TABLET (FP) PO SCH (11:05)
[2018-07-30] MEDS: NICOTINE 21 MG/24 HOURS TOPICAL PATCH TD SCH (11:05)
--- NOTE | 2018-07-30 13:36 | PN ---
S CIWA - CIWA Score Nausea/Vomitin-No Nausea/No Vomiting Muscle Tremors: 3 Anxiety: 4-Mod. Anxious/Guarded Agitation: 3 Paroxysmal Sweats: No Perspiration Orientation: 0-Oriented Tacttile Disturbances: 0-None Auditory Disturbances: 0-None Visual Disturbances: 0-None Headache: 0-None Present CIWA-Ar Total Score: 10 BHS Progress Note (SOAP) Subjective: PT LYING IN BED. C/O FATIGUE, SLIGHT TREMORS AND KNEE PAIN AND HX ARTHRITIS. Objective: 07/30/18 13:38 Vital Signs - 24 hr 07/29/18 07/29/18 07/29/18 13:42 17:46 22:00 Temperature 98.1 F 98.5 F 97.8 F Pulse Rate 78 83 76 Respiratory 16 19 19 Rate Blood Pressure 102/58 L 110/51 L 109/62 07/30/18 07/30/18 07/30/18 01:28 03:30 06:00 Temperature 97.7 F Pulse Rate 85 Respiratory 18 18 18 Rate Blood Pressure 100/56 L 07/30/18 10:02 Temperature 97.9 F Pulse Rate 88 Respiratory 18 Rate Blood Pressure 115/70 Laboratory Tests 07/28/18 07/29/18 07/29/18 12:00 06:25 06:25 WBC 6.3 RBC 4.85 Hgb 14.7 Hct 42.9 MCV 88.5 MCH 30.4 MCHC 34.3 RDW 14.7 Plt Count 351 MPV 8.3 Sodium 137 Potassium 4.1 Chloride 103 Carbon Dioxide 28 Anion Gap 7 L BUN 9 Creatinine 0.8 Creat Clearance w eGFR > 60 Random Glucose 116 H Calcium 9.4 Total Bilirubin 0.2 AST 44 H ALT 64 H Alkaline Phosphatase 126 H Total Protein 7.0 Albumin 4.0 RPR Titer HIV 1&2 Antibody Screen Negative HIV P24 Antigen Negative 07/29/18 06:25 WBC RBC Hgb Hct MCV MCH MCHC RDW Plt Count MPV Sodium Potassium Chloride Carbon Dioxide Anion Gap BUN Creatinine Creat Clearance w eGFR Random Glucose Calcium Total Bilirubin AST ALT Alkaline Phosphatase Total Protein Albumin RPR Titer Nonreactive HIV 1&2 Antibody Screen HIV P24 Antigen Assessment: 07/30/18 13:38 WITHDRAWAL SX Plan: CONTINUE DETOX MOTRIN PRN
[2018-07-30] MEDS: chlordiazePOXIDE 5 MG CAPSULE PO SCH ×2 (17:21→22:13)
[2018-07-30] MEDS: hydrOXYzine PAMOATE 50 MG CAPSULE (FP) PO PRN (17:21)
[2018-07-30] MEDS: QUEtiapine FUMARATE 300 MG TABLET PO SCH (22:13)
[2018-07-30] MEDS: THIAMINE HCL 100 MG TABLET (FP) PO SCH (22:13)
[2018-07-31] MEDS: chlordiazePOXIDE 5 MG CAPSULE PO SCH ×2 (05:57→10:38)
[2018-07-31] MEDS: NICOTINE POLACRILEX 2 MG GUM BC PRN (05:58)
[2018-07-31] MEDS: PRENATAL VITAMINS W/ FOLIC ACID TABLET (FP) PO SCH (10:37)
[2018-07-31] MEDS: SERTRALINE HCL 50 MG TABLET (FP) PO SCH (10:37)
[2018-07-31] MEDS: NICOTINE 21 MG/24 HOURS TOPICAL PATCH TD SCH (10:38)
--- NOTE | 2018-07-31 16:08 | PN ---
BHS Progress Note (SOAP) Subjective: Sweating Objective: 07/31/18 16:06 Last Vital Signs Temp Pulse Resp BP Pulse Ox 96.1 F L 95 H 18 109/74 07/31/18 13:26 07/31/18 13:26 07/31/18 13:26 07/31/18 13:26 Laboratory Tests 07/28/18 07/29/18 07/29/18 12:00 06:25 06:25 WBC 6.3 RBC 4.85 Hgb 14.7 Hct 42.9 MCV 88.5 MCH 30.4 MCHC 34.3 RDW 14.7 Plt Count 351 MPV 8.3 Sodium 137 Potassium 4.1 Chloride 103 Carbon Dioxide 28 Anion Gap 7 L BUN 9 Creatinine 0.8 Creat Clearance w eGFR > 60 Random Glucose 116 H Calcium 9.4 Total Bilirubin 0.2 AST 44 H ALT 64 H Alkaline Phosphatase 126 H Total Protein 7.0 Albumin 4.0 RPR Titer HIV 1&2 Antibody Screen Negative HIV P24 Antigen Negative 07/29/18 06:25 WBC RBC Hgb Hct MCV MCH MCHC RDW Plt Count MPV Sodium Potassium Chloride Carbon Dioxide Anion Gap BUN Creatinine Creat Clearance w eGFR Random Glucose Calcium Total Bilirubin AST ALT Alkaline Phosphatase Total Protein Albumin RPR Titer Nonreactive HIV 1&2 Antibody Screen HIV P24 Antigen Labs reviewed Assessment: 07/31/18 16:07 Withdrawal symptoms Plan: Continue detox Encouraged PO water hydration
[2018-07-31] MEDS: chlordiazePOXIDE HCL 10 MG CAPSULE PO SCH ×2 (19:16→22:30)
[2018-07-31] MEDS: hydrOXYzine PAMOATE 50 MG CAPSULE (FP) PO PRN (22:30)
[2018-07-31] MEDS: QUEtiapine FUMARATE 300 MG TABLET PO SCH (22:30)
[2018-07-31] MEDS: THIAMINE HCL 100 MG TABLET (FP) PO SCH (22:31)
[2018-08-01] MEDS: chlordiazePOXIDE HCL 10 MG CAPSULE PO SCH ×2 (06:20→11:06)
--- NOTE | 2018-08-01 08:20 | DS ---
[facility] Detox Discharge Summary Admission Date: 07/28/18 Discharge Date: 08/01/18 - History Present History: Alcohol Dependence, Cannabis Dependence, Cocaine Dependence - Physical Exam Results Vital Signs: Vital Signs Temperature 98.1 F 08/01/18 06:40 Pulse Rate 78 08/01/18 06:40 Respiratory Rate 18 08/01/18 06:40 Blood Pressure 113/62 08/01/18 06:40 O2 Sat by Pulse Oximetry (%) - Treatment Hospital Course: Detox Protocol Followed, Detoxed Safely, Responded well, Discharged Condition Good, Rehab Referral Accepted - Medication Discharge Medications: Ambulatory Orders Quetiapine Fumarate [Seroquel] 300 mg PO HS #30 tablet 07/28/18 Sertraline HCl [Zoloft -] 50 mg PO DAILY #30 tablet 07/28/18 - Diagnosis (1) Alcohol dependence with uncomplicated withdrawal Current Visit: Yes Status: Chronic (2) Anemia Current Visit: Yes Status: Chronic (3) Cannabis dependence Current Visit: Yes Status: Chronic (4) Cocaine dependence Current Visit: Yes Status: Chronic Qualifiers: Substance use status: uncomplicated Qualified Code(s): F14.20 - Cocaine dependence, uncomplicated (5) Epigastric hernia Current Visit: No Status: Acute (6) Nicotine dependence Current Visit: Yes Status: Acute Qualifiers: Nicotine product type: cigarettes Substance use status: uncomplicated Qualified Code(s): F17.210 - Nicotine dependence, cigarettes, uncomplicated (7) Substance-induced anxiety disorder Current Visit: No Status: Acute (8) Substance-induced sleep disorder Current Visit: No Status: Acute (9) Substance-induced sleep disorder Current Visit: No Status: Acute (10) Syncope Current Visit: No Status: Acute (11) Umbilical hernia Current Visit: No Status: Acute (12) Weight loss Current Visit: No Status: Acute (13) Asthma Current Visit: Yes Status: Chronic Qualifiers: Asthma severity: mild Asthma persistence: intermittent Asthma complication type: uncomplicated Qualified Code(s): J45.20 - Mild intermittent asthma, uncomplicated (14) Cocaine dependence, uncomplicated Current Visit: Yes Status: Chronic (15) Inguinal hernia, right Current Visit: No Status: Chronic (16) Insomnia Current Visit: No Status: Chronic (17) Nicotine dependence Current Visit: Yes Status: Chronic Qualifiers: Nicotine product type: cigarettes Substance use status: uncomplicated Qualified Code(s): F17.210 - Nicotine dependence, cigarettes, uncomplicated (18) Schizoaffective disorder Current Visit: No Status: Chronic (19) Substance induced mood disorder Current Visit: No Status: Suspected - AMA Did Patient Leave Against Medical Advice: No ([facility]
[2018-08-01 09:13] VITALS: BP 134/56; PULSE 90; TEMP 97.7
[2018-08-01] MEDS: SERTRALINE HCL 50 MG TABLET (FP) PO SCH (11:05)
[2018-08-01] MEDS: PRENATAL VITAMINS W/ FOLIC ACID TABLET (FP) PO SCH (11:05)
[2018-08-01] MEDS: NICOTINE 21 MG/24 HOURS TOPICAL PATCH TD SCH (11:06)
== END 2018-08-01 10:40 | disposition home or self-care (01) | DRG 774 ==
LOC: YASAS 09:03 → Y6N 12:35
PROVIDERS: ADMIT Surgery; ATTEND Surgery
PROC: HZ2ZZZZ Detoxification Services for Substance Abuse Treatment (ICD-10-PCS; principal; 2018-07-28)
DX: F10.230 Alcohol dependence with withdrawal, uncomplicated (principal); F14.20 Cocaine dependence, uncomplicated; F12.20 Cannabis dependence, uncomplicated; F17.210 Nicotine dependence, cigarettes, uncomplicated; F19.24 Other psychoactive substance dependence with psychoactive substance-induced mood disorder; F19.280 Other psychoactive substance dependence with psychoactive substance-induced anxiety disorder; F19.282 Other psychoactive substance dependence with psychoactive substance-induced sleep disorder; F25.9 Schizoaffective disorder, unspecified; R55 Syncope and collapse; J45.20 Mild intermittent asthma, uncomplicated; K40.90 Unilateral inguinal hernia, without obstruction or gangrene, not specified as recurrent; K42.9 Umbilical hernia without obstruction or gangrene; R63.4 Abnormal weight loss; Z68.24 Body mass index [BMI] 24.0-24.9, adult; D64.9 Anemia, unspecified; Z59.0 Homelessness
CPT/HCPCS: 36415; 80053; 85027; 86593; 87389

== ENCOUNTER 2018-09-17 08:26 | Inpatient (IN) | payer OTHER ==
[2018-09-17 09:16] VITALS: BMI 24.8
--- NOTE | 2018-09-17 09:27 | HP ---
CIWA Score Nausea/Vomitin Muscle Tremors: 2 Anxiety: 2 Agitation: 2 Paroxysmal Sweats: 1-Minimal Palms Moist Orientation: 0-Oriented Tacttile Disturbances: 1-Very Mild Itch/Numbness Auditory Disturbances: 1-Very Mild Visual Disturbances: 0-None Headache: 2-Mild CIWA-Ar Total Score: 13 - Admission Criteria [facility]AS[facility] Guidelines: Admission for Medically Managed Detox: Requires at least one of the followin. CIWA greater than 12 2. Seizures within the past 24 hours 3. Delirium tremens within the past 24 hours 4. Hallucinations within the past 24 hours 5. Acute intervention needed for co occurring medical disorder 6. Acute intervention needed for co occurring psychiatric disorder 7. Severe withdrawal that cannot be handled at a lower level of care (continued vomiting, continued diarrhea, abnormal vital signs) requiring intravenous medication and/or fluids 8. Admission ROS S - HPI Chief Complaint: i need help to stop drinking alcohol,crack,marijuana,k2 Allergies/Adverse Reactions: Allergies Allergy/AdvReac Type Severity Reaction Status Date / Time No Known Allergies Allergy Verified 07/28/18 12:13 History of Present Illness: this 38 years old male with alcohol,crack,marijuana,k2 seeking help,withdrawal symptom, multiple admissions to detox but keep relapsing last detox [facility] 07/28/18 to 08/01/18 syncope alcohol related right inguinal hernia and umbilical hernia 1 year left inguinal hernia repair at age of 23 [facility] weight loss nicotine dependence 3 cigarette/day schizoaffective disorder plan for rehab after detox ambulation with cane 2 months ago - Ebola screening Have you traveled outside of the country in the last 21 days: No Have you had contact with anyone from an Ebola affected area: No - Review of Systems Constitutional: Loss of Appetite, Malaise, Night Sweats, Changes in sleep, Unintentional Wgt. Loss EENT: reports: Nose Congestion Respiratory: reports: No Symptoms reported, Other (asthma) Cardiac: reports: No Symptoms Reported GI: reports: Nausea, Poor Appetite, Abdominal cramping, Other (right inguinal hernia umbilical hernia s/p repair of left inguinal hernia) : reports: No Symptoms Reported Musculoskeletal: reports: Back Pain, Muscle Pain Integumentary: reports: Dryness Neuro: reports: Headache, Tremors Hematology: reports: No Symptoms Reported Psychiatric: reports: No Sypmtoms Reported, Judgement Intact, Mood/Affect Appropiate, Orientated x3, other (schizoaffective disorder) Patient History - Patient Medical History Hx Anemia: Yes (NO CURRENT SUPPLEMENTS) Hx Asthma: Yes (MDI) Hx Chronic Obstructive Pulmonary Disease (COPD): No Hx Cancer: No Hx Cardiac Disorders: No Hx Congestive Heart Failure: No Hx Hypertension: No Hx Hypercholesterolemia: No Hx Pacemaker: No HX Cerebrovascular Accident: No Hx Seizures: No Hx Dementia: No Hx Diabetes: No Hx Gastrointestinal Disorders: No Hx Liver Disease: No Hx Genitourinary Disorders: No Hx Sexually Transmitted Disorders: No Hx Renal Disease (ESRD): No Hx Thyroid Disease: No Hx Human Immunodeficiency Virus (HIV): No (NEGATIVE HX last 08/23 negative) Hx Hepatitis C: No Hx Depression: Yes (NO CURRENT MEDS BUT IN THE PAST---SEROQUEL AND ZOLOFT) Hx Suicide Attempt: Yes (run in the fraffic at age of 20 years) Hx Schizophrenia: Yes (schizoaffective disorder last medication 05/24) Other Medical History: no suicidal,no homicidal - Patient Surgical History Past Surgical History: Yes Hx Neurologic Surgery: No Hx Cataract Extraction: No Hx Cardiac Surgery: No Hx Lung Surgery: No Hx Breast Surgery: No Hx Breast Biopsy: No Hx Abdominal Surgery: Yes (left inguinal hernia repair at age of 24) Hx Appendectomy: No Hx Cholecystectomy: No Hx Genitourinary Surgery: No Hx Section: No Hx Orthopedic Surgery: No Other Surgical History: left inguinal hernia in 2003,right inguinal hernia, epigastric hernia Anesthesia Reaction: No - PPD History Previous Implant?: Yes Documented Results: Negative w/o proof Implanted On Prior [facility] Admission?: Yes Date: 08/04/17 Results: 0 mm PPD to be Administered?: Yes - Smoking Cessation Smoking history: Current every day smoker Have you smoked in the past 12 months: Yes Aproximately how many cigarettes per day: 3 Hx Chewing Tobacco Use: No Initiated information on smoking cessation: Yes 'Breaking Loose' booklet given: 09/17/18 - Substance & Tx. History Hx Alcohol Use: Yes Hx Substance Use: Yes Substance Use Type: Alcohol, Cocaine, Marijuana Hx Substance Use Treatment: Yes ([facility] 07/28/18 to 08/01/18) - Substances abused Alcohol Substance route: Oral Frequency: Daily Amount used: 1pint of vodka/6 packs of 16 ozs of beer Age of first use: 10 Date of last use: 09/17/18 Cocaine Substance route: Smoking Frequency: Daily Amount used: 50$ Age of first use: 20 Date of last use: 09/17/18 Marijuana/Hashish Substance route: Smoking Frequency: Daily Amount used: 5$ Age of first use: 10 Date of last use: 09/16/18 Methamphetamine Substance route: Smoking Frequency: 1-3 times last 30 days Amount used: 5$ Age of first use: 36 Date of last use: 09/16/18 Family Disease History - Family Disease History Family Disease History: [place]: Grandparent ( ), Father (HTN;PROSTATE-ALIVE, dsa,sober), Mother (OVARIAN-ALIVE), Other: Father Admission Physical Exam S - Vital Signs Vital Signs: Vital Signs - 24 hr 09/17/18 09:09 Temperature 97.9 F Pulse Rate 91 H Respiratory 18 Rate Blood Pressure 112/84 - Physical General Appearance: Yes: Moderate Distress, Tremorous, Irritable, Sweating, Anxious HEENTM: Yes: Normal ENT Inspection, JHONY, Pharynx Normal, Microcephalic Respiratory: Yes: Normal Breath Sounds, No Respiratory Distress Neck: Yes: Within Normal Limits, Supple, Trachea in good position Breast: Yes: Within Normal Limits Cardiology: Yes: Within Normal Limits, Regular Rhythm, Regular Rate, S1, S2 Abdominal: Yes: Normal Bowel Sounds, Soft, Other (epigastric hernia right inguinoscrotal hernia) Genitourinary: Yes: Within Normal Limits Back: Yes: Within Normal Limits, Normal Inspection, CVA Tenderness Musculoskeletal: Yes: full range of Motion, Back pain, Muscle Pain Extremities: Yes: Tremors Neurological: Yes: special education paraprofessional II-XII NML intact, Fully Oriented, Alert, Motor Strength 5/5 Integumentary: Yes: Dry Lymphatic: Yes: Within Normal Limits - Diagnostic (1) Alcohol dependence with uncomplicated withdrawal Current Visit: Yes Status: Acute (2) Epigastric hernia Current Visit: No Status: Acute (3) Nicotine dependence Current Visit: Yes Status: Chronic Qualifiers: Nicotine product type: cigarettes Substance use status: uncomplicated Qualified Code(s): F17.210 - Nicotine dependence, cigarettes, uncomplicated (4) Syncope Current Visit: No Status: Acute (5) Weight loss Current Visit: No Status: Acute (6) Alcohol dependence with uncomplicated withdrawal Current Visit: No Status: Chronic (7) Cannabis dependence Current Visit: Yes Status: Chronic (8) Cocaine dependence Current Visit: Yes Status: Chronic Qualifiers: Substance use status: uncomplicated Qualified Code(s): F14.20 - Cocaine dependence, uncomplicated (9) Inguinal hernia, right Current Visit: No Status: Chronic (10) Schizoaffective disorder Current Visit: Yes Status: Chronic Comment: By history. (11) History of left inguinal hernia repair Current Visit: Yes Status: Acute Cleared for Admission [facility] - Detox or Rehab [facility] Level of Care: Medically Managed Detox Regimen/Protocol: Librium Breathalyzer - Breathalyzer Breathalyzer: 0 Urine Drug Screen - Test Device Lot number: [id number] Expiration date: 05/06/20 - Control Is test valid?: Yes - Results Drug screen NEGATIVE: No Urine drug screen results: THC-Marijuana, RY-Cocaine, MET-Methamphetamine Inpatient Rehab Admission - Rehab Decision to Admit Inpatient rehab admission?: No
[2018-09-17] MEDS ORDERED: MAG HYDROX/AL HYDROX/SIMETH 30 ML UNIT-DOSE CUP PO PRN (09:50)
[2018-09-17] MEDS ORDERED: hydrOXYzine PAMOATE 25 MG CAPSULE (FP) PO PRN (09:50)
[2018-09-17] MEDS ORDERED: BISMUTH SUBSALICYLATE 524 MG/30 ML UD PO PRN (09:50)
[2018-09-17] MEDS ORDERED: MAGNESIUM HYDROX 2400MG/30ML ORAL SUSPENSION 30 ML CUP PO PRN (09:50)
[2018-09-17] MEDS ORDERED: chlordiazePOXIDE HCL 25 MG CAPSULE PO PRN (09:50)
[2018-09-17] MEDS ORDERED: MAGNESIUM CITRATE 300 ML BOTTLE PO PRN (09:50)
[2018-09-17] MEDS ORDERED: MELATONIN 5 MG TABLETS PO PRN (09:50)
[2018-09-17] MEDS ORDERED: ACETAMINOPHEN 325 MG TABLET (FP) PO PRN ×2 (09:50)
[2018-09-17] MEDS ORDERED: METHOCARBAMOL 500 MG TABLET PO PRN (09:50)
[2018-09-17] MEDS ORDERED: IBUPROFEN 400 MG TABLET (FP) PO PRN (09:50)
[2018-09-17] MEDS: chlordiazePOXIDE HCL 25 MG CAPSULE PO SCH ×3 (10:48→23:07)
[2018-09-17] MEDS: PRENATAL VITAMINS W/ FOLIC ACID TABLET (FP) PO SCH (10:49)
[2018-09-17] MEDS: NICOTINE 7 MG/24 HOURS TOPICAL PATCH TD SCH (10:52)
[2018-09-17 12:24] LABS: HEMATOCRIT 44.5 % (35.4-49); HEMOGLOBIN 14.8 GM/dL (11.7-16.9); MCH 29.4 pg (25.7-33.7); MCHC 33.2 g/dl (32.0-35.9); MEAN CELL VOLUME 88.4 fl (80-96); MEAN PLT VOLUME 7.8 fl (7.5-11.1); PLATELET COUNT 278 K/MM3 (134-434); RBC 5.03 M/mm3 (4.00-5.60); RDW 14.2 % (11.9-15.9); WHITE BLOOD COUNT 7.7 K/mm3 (4.0-10.0)
[2018-09-17 12:28] LABS: ALBUMIN 4.1 g/dl (3.4-5.0); ALK PHOS 86 U/L (45-117); ANION GAP 6 MMOL/L (8-16); BILIRUBIN,TOTAL 0.7 mg/dL (0.2-1); BLOOD UREA NITROGEN 15 mg/dL (7-18); CALCIUM 8.7 mg/dL (8.5-10.1); CHLORIDE 106 mmol/L (98-107); CO2 27 mmol/L (21-32); CREATININE 0.9 mg/dL (0.55-1.3); GLUCOSE,RANDOM 119 mg/dL (74-106); POTASSIUM 3.7 mmol/L (3.5-5.1); SGOT/AST 64 U/L (15-37); SGPT/ALT 43 U/L (13-61); SODIUM 139 mmol/L (136-145); TOT PROT 7.3 g/dl (6.4-8.2)
--- NOTE | 2018-09-17 17:11 | CONSULT ---
[facility] Psychiatric Consult - Data Date of interview: 09/17/18 Admission source: [facility] Identifying data: This is one of multiple admissions to [facility] for this 38 y/ o AA male self-referred for detoxification treatment (alcohol, cocaine (crack), K2/marihuana). Examined at [address] [place] [address]. Patient is single, a father of one, homeless , unemployed and supported on food stamps (self-report). Substance Abuse History: Confirmed by the patient in this interview. Details in current [facility] report that follows : Smoking history: Current every day smoker. Have you smoked in the past 12 months: Yes. Aproximately how many cigarettes per day: 3. Hx Chewing Tobacco Use: No. Initiated information on smoking cessation: Yes. 'Breaking Loose' booklet given: 09/17/18. - Substance & Tx. History. Hx Alcohol Use: Yes. Hx Substance Use: Yes. Substance Use Type: Alcohol, Cocaine, Marijuana. Hx Substance Use Treatment: Yes ([facility] 07/28/18 to 08/01/18). - Substances abused. Alcohol. Substance route: Oral. Frequency : Daily. Amount used: 1pint of vodka/6 packs of 16 ozs of beer. Age of first use: 10. Date of last use: 09/17/18. Cocaine. Substance route: Smoking. Frequency: Daily. Amount used: 50$. Age of first use: 20. Date of last use: 09/17/18. Marijuana/Hashish. Substance route: Smoking. Frequency: Daily. Amount used: 5$. Age of first use: 10. Date of last use: 09/16/18. Methamphetamine. Substance route: Smoking. Frequency: 1-3 times last 30 days. Amount used: 5$. Age of first use: 36. Date of last use: 09/16/18. Family Disease History Medical History: Remarkable for anemia, bronchial asthma and history of herniorraphies (right + left inguinal hernias). Psychiatric History: Patient is moderately sedated (questionable historian). Mr Andrews admits to " a history of multiple psychiatric hospitalizations ([facility], [facility], [facility] in [place]). Diagnosed with Schizoaffective Disorder (in his 20's). Patient reports that he used to see a psychiatrist for OPD care at [facility] in [facility]. Medications consist of seroquel 300 mg/hs + sertraline (discontinued for side effects) + wellbutrin (dose not recalled). Chronic pattern of non- adherence to medications. Distant history of a suicide attemnpt (age 20) via deliberate jump into traffic. Patient has been lost to psychiatric follow-up for months. Physical/Sexual Abuse/Trauma History: Not discussed. Patient not cooperative. Additional Comment: Urine drug screen results: THC-Marijuana, RY-Cocaine, MET- Methamphetamine. Noted. Mental Status Exam - Mental Status Exam Alert and Oriented to: Place, Person Cognitive Function: Impaired (moderately sedated from medications) Patient Appearance: Unkempt, Disheveled Mood: Withdrawn Affect: Constricted Patient Behavior: Sedated, Fatigued, Uncooperative Speech Pattern: Delayed, Slurred Voice Loudness: Moderately Soft/Quiet Thought Process: Disorganized Thought Disorder: Not Present Hallucinations: Denies Suicidal Ideation: Denies Sleep: Well Appetite: Good (as evidenced by empty foodtray at bedside) Gait/Station: Spastic (not observed ; patient in decubitus) Psychiatric Findings - Problem List (Wall 1, 2,3) (1) Sedated due to medication Current Visit: Yes Status: Acute (2) Alcohol dependence with uncomplicated withdrawal Current Visit: Yes Status: Acute (3) Nicotine dependence Current Visit: Yes Status: Chronic Qualifiers: Nicotine product type: cigarettes Substance use status: uncomplicated Qualified Code(s): F17.210 - Nicotine dependence, cigarettes, uncomplicated (4) Cannabis dependence Current Visit: Yes Status: Chronic (5) Cocaine dependence Current Visit: Yes Status: Chronic Qualifiers: Substance use status: uncomplicated Qualified Code(s): F14.20 - Cocaine dependence, uncomplicated (6) Substance induced mood disorder Current Visit: Yes Status: Chronic (7) Schizoaffective disorder Current Visit: Yes Status: Chronic Comment: By history. (8) Non-compliance Current Visit: Yes Status: Chronic - Initial Treatment Plan Initial Treatment Plan: Psychoeducation. Sleep hygiene. Support. Detoxification. Hold wellbutrin and seroquel (due to current sedated state). Observation.
[2018-09-17] MEDS: NICOTINE POLACRILEX 2 MG GUM BUC PRN (17:46)
[2018-09-17] MEDS: THIAMINE HCL 100 MG TABLET (FP) PO SCH (23:07)
[2018-09-18] MEDS: chlordiazePOXIDE HCL 25 MG CAPSULE PO SCH ×4 (05:39→22:47)
[2018-09-18] MEDS: NICOTINE 7 MG/24 HOURS TOPICAL PATCH TD SCH (10:26)
[2018-09-18] MEDS: PRENATAL VITAMINS W/ FOLIC ACID TABLET (FP) PO SCH (10:26)
--- NOTE | 2018-09-18 14:47 | PN ---
[facility] CIWA - CIWA Score Nausea/Vomitin-Mild Nausea/No Vomiting Muscle Tremors: 3 Anxiety: 1-Mildly Anxious Agitation: 2 Paroxysmal Sweats: 1-Minimal Palms Moist Orientation: 2-Disoriented Date<2 days Tacttile Disturbances: 0-None Auditory Disturbances: 0-None Visual Disturbances: 0-None Headache: 1-Very Mild CIWA-Ar Total Score: 11 S Progress Note (SOAP) Subjective: doing well with librium detox protocol social with peers in hallway sleep ok last night but feel tied Objective: 09/18/18 14:48 Vital Signs Temperature 96.9 F L 09/18/18 13:48 Pulse Rate 90 09/18/18 13:48 Respiratory Rate 18 09/18/18 13:48 Blood Pressure 113/72 09/18/18 13:48 O2 Sat by Pulse Oximetry (%) Laboratory Last Values WBC 7.7 K/mm3 (4.0-10.0) 09/17/18 10:00 RBC 5.03 M/mm3 (4.00-5.60) 09/17/18 10:00 Hgb 14.8 GM/dL (11.7-16.9) 09/17/18 10:00 Hct 44.5 % (35.4-49) 09/17/18 10:00 MCV 88.4 fl (80-96) 09/17/18 10:00 MCH 29.4 pg (25.7-33.7) 09/17/18 10:00 MCHC 33.2 g/dl (32.0-35.9) 09/17/18 10:00 RDW 14.2 % (11.9-15.9) 09/17/18 10:00 Plt Count 278 K/MM3 (134-434) D 09/17/18 10:00 MPV 7.8 fl (7.5-11.1) 09/17/18 10:00 Sodium 139 mmol/L (136-145) 09/17/18 10:00 Potassium 3.7 mmol/L (3.5-5.1) 09/17/18 10:00 Chloride 106 mmol/L (98-107) 09/17/18 10:00 Carbon Dioxide 27 mmol/L (21-32) 09/17/18 10:00 Anion Gap 6 MMOL/L (8-16) L 09/17/18 10:00 BUN 15 mg/dL (7-18) 09/17/18 10:00 Creatinine 0.9 mg/dL (0.55-1.3) 09/17/18 10:00 Creat Clearance w eGFR 94.95 (>60) 09/17/18 10:00 Random Glucose 119 mg/dL (74-106) H 09/17/18 10:00 Calcium 8.7 mg/dL (8.5-10.1) 09/17/18 10:00 Total Bilirubin 0.7 mg/dL (0.2-1) 09/17/18 10:00 AST 64 U/L (15-37) H 09/17/18 10:00 ALT 43 U/L (13-61) 09/17/18 10:00 Alkaline Phosphatase 86 U/L (45-117) 09/17/18 10:00 Total Protein 7.3 g/dl (6.4-8.2) 09/17/18 10:00 Albumin 4.1 g/dl (3.4-5.0) 09/17/18 10:00 RPR Titer Nonreactive (NONREACTIVE) 09/17/18 10:00 lab noted Assessment: 09/18/18 14:48 withdrawal sx Plan: continue detox
[2018-09-18] MEDS: NICOTINE POLACRILEX 2 MG GUM BUC PRN (17:15)
[2018-09-18] MEDS: THIAMINE HCL 100 MG TABLET (FP) PO SCH (22:46)
[2018-09-19] MEDS: MENTHOL/PHENOL 1 EACH UD MM PRN ×2 (02:32→05:09)
[2018-09-19] MEDS: chlordiazePOXIDE HCL 25 MG CAPSULE PO SCH (05:08)
[2018-09-19] MEDS ORDERED: guaiFENesin/CODEINE 10 ML UNIT-DOSE CUPS PO PRN (05:10)
[2018-09-19] MEDS ORDERED: guaiFENesin 200 MG/10 ML 10 ML UNIT-DOSE CUPS PO PRN (05:17)
[2018-09-19 10:06] LABS: PH,URINE 7.5 (5.0-8.0); URINE APPEARANCE CLEAR; URINE BILIRUBIN NEGATIVE (NEGATIVE); URINE COLOR YELLOW; URINE GLUCOSE (UA) NEGATIVE (NEGATIVE); URINE KETONE NEGATIVE (NEGATIVE); URINE LEUK ESTERASE NEGATIVE (NEGATIVE); URINE NITRITE NEGATIVE (NEGATIVE); URINE PROTEIN NEGATIVE (NEGATIVE); URINE UROBILINOGEN 0.2 mg/dL (0.2-1.0)
--- NOTE | 2018-09-19 10:22 | PN ---
[facility] CIWA - CIWA Score Nausea/Vomitin-No Nausea/No Vomiting Muscle Tremors: 2 Anxiety: 2 Agitation: 2 Paroxysmal Sweats: 1-Minimal Palms Moist Orientation: 1-Uncertain about Date Tacttile Disturbances: 0-None Auditory Disturbances: 0-None Visual Disturbances: 0-None Headache: 1-Very Mild CIWA-Ar Total Score: 9 S Progress Note (SOAP) Subjective: feeling ok today better food intake social with peers on hallway Objective: 09/19/18 10:21 Vital Signs Temperature 98.7 F 09/19/18 09:03 Pulse Rate 94 H 09/19/18 09:03 Respiratory Rate 20 09/19/18 09:03 Blood Pressure 98/64 09/19/18 09:03 O2 Sat by Pulse Oximetry (%) Laboratory Last Values WBC 7.7 K/mm3 (4.0-10.0) 09/17/18 10:00 RBC 5.03 M/mm3 (4.00-5.60) 09/17/18 10:00 Hgb 14.8 GM/dL (11.7-16.9) 09/17/18 10:00 Hct 44.5 % (35.4-49) 09/17/18 10:00 MCV 88.4 fl (80-96) 09/17/18 10:00 MCH 29.4 pg (25.7-33.7) 09/17/18 10:00 MCHC 33.2 g/dl (32.0-35.9) 09/17/18 10:00 RDW 14.2 % (11.9-15.9) 09/17/18 10:00 Plt Count 278 K/MM3 (134-434) D 09/17/18 10:00 MPV 7.8 fl (7.5-11.1) 09/17/18 10:00 Sodium 139 mmol/L (136-145) 09/17/18 10:00 Potassium 3.7 mmol/L (3.5-5.1) 09/17/18 10:00 Chloride 106 mmol/L (98-107) 09/17/18 10:00 Carbon Dioxide 27 mmol/L (21-32) 09/17/18 10:00 Anion Gap 6 MMOL/L (8-16) L 09/17/18 10:00 BUN 15 mg/dL (7-18) 09/17/18 10:00 Creatinine 0.9 mg/dL (0.55-1.3) 09/17/18 10:00 Creat Clearance w eGFR 94.95 (>60) 09/17/18 10:00 Random Glucose 119 mg/dL (74-106) H 09/17/18 10:00 Calcium 8.7 mg/dL (8.5-10.1) 09/17/18 10:00 Total Bilirubin 0.7 mg/dL (0.2-1) 09/17/18 10:00 AST 64 U/L (15-37) H 09/17/18 10:00 ALT 43 U/L (13-61) 09/17/18 10:00 Alkaline Phosphatase 86 U/L (45-117) 09/17/18 10:00 Total Protein 7.3 g/dl (6.4-8.2) 09/17/18 10:00 Albumin 4.1 g/dl (3.4-5.0) 09/17/18 10:00 Urine Color Yellow 09/19/18 07:35 Urine Appearance Clear 09/19/18 07:35 Urine pH 7.5 (5.0-8.0) D 09/19/18 07:35 Ur Specific [place] 1.011 (1.010-1.035) 09/19/18 07:35 Urine Protein Negative (NEGATIVE) 09/19/18 07:35 Urine Glucose (UA) Negative (NEGATIVE) 09/19/18 07:35 Urine Ketones Negative (NEGATIVE) 09/19/18 07:35 Urine Blood Negative (NEGATIVE) 09/19/18 07:35 Urine Nitrite Negative (NEGATIVE) 09/19/18 07:35 Urine Bilirubin Negative (NEGATIVE) 09/19/18 07:35 Urine Urobilinogen 0.2 mg/dL (0.2-1.0) 09/19/18 07:35 Ur Leukocyte Esterase Negative (NEGATIVE) 09/19/18 07:35 RPR Titer Nonreactive (NONREACTIVE) 09/17/18 10:00 lab noted Assessment: 09/19/18 10:21 alcohol withdrawal sx Plan: continue detox
[2018-09-19] MEDS: PRENATAL VITAMINS W/ FOLIC ACID TABLET (FP) PO SCH (10:28)
[2018-09-19] MEDS: chlordiazePOXIDE HCL 10 MG CAPSULE PO SCH ×3 (10:28→22:22)
[2018-09-19] MEDS: NICOTINE 7 MG/24 HOURS TOPICAL PATCH TD SCH (10:28)
[2018-09-19] MEDS ORDERED: chlordiazePOXIDE HCL 10 MG CAPSULE PO PRN (11:00)
--- NOTE | 2018-09-19 17:01 | PN ---
[facility] Progress Note Note: Psychiatry Attending's note (follow-up) : Met with patient. Reason : discussion of medications. Patient is requesting seroquel + wellbutrin. Were held due to sedation (09/17/18). See my note. Mr Andrews is noted, today, as alert, fully oriented, conversant. Moving around the unit. With cane. Pleasant and friendly. Well groomed. Well informed about his medications. Declines renewal of sertraline (sexual side effects). Intervention : wellbutrin XL 150 mg po daily seroquel 100 mg po hs Ordered. Side effects/benefits of both drugs reviewed with patient. Including the risk of seizures + metabolic syndrome + sedation. Mr Andrews is agreeable with this plan of care. Consent (verbal) granted to .
[2018-09-19] MEDS: NICOTINE POLACRILEX 2 MG GUM BUC PRN (17:24)
[2018-09-19] MEDS ORDERED: QUEtiapine FUMARATE 100 MG TABLET (FP) PO SCH (22:00)
[2018-09-19] MEDS: THIAMINE HCL 100 MG TABLET (FP) PO SCH (22:22)
[2018-09-20] MEDS: chlordiazePOXIDE HCL 10 MG CAPSULE PO SCH (05:08)
--- NOTE | 2018-09-20 08:54 | DS ---
[facility] Detox Discharge Summary Admission Date: 09/17/18 Discharge Date: 09/20/18 - History Present History: Alcohol Dependence Additional Comments: 38 years old male admitted on 09/17/18 for alcohol withdrawal stabilizaion feeling better today reporting "My disease case manager rn found me a residential place" patient wants to move in to his new residential facility alert no acute distress denies suicidal ideation - Physical Exam Results Vital Signs: Vital Signs Temperature 96.7 F L 09/20/18 06:17 Pulse Rate 57 L 09/20/18 06:17 Respiratory Rate 18 09/20/18 06:17 Blood Pressure 108/74 09/20/18 06:17 O2 Sat by Pulse Oximetry (%) Pertinent Admission Physical Exam Findings: alcohol withdrawal sx Laboratory Last Values WBC 7.7 K/mm3 (4.0-10.0) 09/17/18 10:00 RBC 5.03 M/mm3 (4.00-5.60) 09/17/18 10:00 Hgb 14.8 GM/dL (11.7-16.9) 09/17/18 10:00 Hct 44.5 % (35.4-49) 09/17/18 10:00 MCV 88.4 fl (80-96) 09/17/18 10:00 MCH 29.4 pg (25.7-33.7) 09/17/18 10:00 MCHC 33.2 g/dl (32.0-35.9) 09/17/18 10:00 RDW 14.2 % (11.9-15.9) 09/17/18 10:00 Plt Count 278 K/MM3 (134-434) D 09/17/18 10:00 MPV 7.8 fl (7.5-11.1) 09/17/18 10:00 Sodium 139 mmol/L (136-145) 09/17/18 10:00 Potassium 3.7 mmol/L (3.5-5.1) 09/17/18 10:00 Chloride 106 mmol/L (98-107) 09/17/18 10:00 Carbon Dioxide 27 mmol/L (21-32) 09/17/18 10:00 Anion Gap 6 MMOL/L (8-16) L 09/17/18 10:00 BUN 15 mg/dL (7-18) 09/17/18 10:00 Creatinine 0.9 mg/dL (0.55-1.3) 09/17/18 10:00 Creat Clearance w eGFR 94.95 (>60) 09/17/18 10:00 Random Glucose 119 mg/dL (74-106) H 09/17/18 10:00 Calcium 8.7 mg/dL (8.5-10.1) 09/17/18 10:00 Total Bilirubin 0.7 mg/dL (0.2-1) 09/17/18 10:00 AST 64 U/L (15-37) H 09/17/18 10:00 ALT 43 U/L (13-61) 09/17/18 10:00 Alkaline Phosphatase 86 U/L (45-117) 09/17/18 10:00 Total Protein 7.3 g/dl (6.4-8.2) 09/17/18 10:00 Albumin 4.1 g/dl (3.4-5.0) 09/17/18 10:00 Urine Color Yellow 09/19/18 07:35 Urine Appearance Clear 09/19/18 07:35 Urine pH 7.5 (5.0-8.0) D 09/19/18 07:35 Ur Specific [place] 1.011 (1.010-1.035) 09/19/18 07:35 Urine Protein Negative (NEGATIVE) 09/19/18 07:35 Urine Glucose (UA) Negative (NEGATIVE) 09/19/18 07:35 Urine Ketones Negative (NEGATIVE) 09/19/18 07:35 Urine Blood Negative (NEGATIVE) 09/19/18 07:35 Urine Nitrite Negative (NEGATIVE) 09/19/18 07:35 Urine Bilirubin Negative (NEGATIVE) 09/19/18 07:35 Urine Urobilinogen 0.2 mg/dL (0.2-1.0) 09/19/18 07:35 Ur Leukocyte Esterase Negative (NEGATIVE) 09/19/18 07:35 RPR Titer Nonreactive (NONREACTIVE) 09/17/18 10:00 lab noted - Treatment Hospital Course: Detox Protocol Followed, Detoxed Safely, Responded well, Discharged Condition Good, Rehab Referral Accepted Patient has Accepted a Rehab Referral to: residential facility for medical and mental issues - Medication Discharge Medications: Ambulatory Orders Quetiapine Fumarate [Seroquel] 300 mg PO HS #30 tablet 07/28/18 Sertraline HCl [Zoloft -] 50 mg PO DAILY #30 tablet 07/28/18 - Diagnosis (1) Alcohol dependence with uncomplicated withdrawal Status: Acute (2) Asthma Status: Chronic Qualifiers: Asthma severity: mild Asthma persistence: intermittent Asthma complication type: uncomplicated Qualified Code(s): J45.20 - Mild intermittent asthma, uncomplicated (3) Nicotine dependence Status: Acute Qualifiers: Nicotine product type: cigarettes Substance use status: in withdrawal Qualified Code(s): F17.213 - Nicotine dependence, cigarettes, with withdrawal (4) Substance induced mood disorder Status: Suspected - AMA Did Patient Leave Against Medical Advice: No
[2018-09-20 09:03] VITALS: BP 108/62; PULSE 79; TEMP 98.3
[2018-09-20] MEDS ORDERED: chlordiazePOXIDE HCL 10 MG CAPSULE PO SCH (11:00)
== END 2018-09-20 09:41 | disposition home or self-care (01) | DRG 774 ==
LOC: YASAS 08:26 → Y3N 10:01
PROVIDERS: ADMIT Surgery; ATTEND Surgery
PROC: HZ2ZZZZ Detoxification Services for Substance Abuse Treatment (ICD-10-PCS; principal; 2018-09-17)
DX: F10.230 Alcohol dependence with withdrawal, uncomplicated (principal); F14.20 Cocaine dependence, uncomplicated; F12.20 Cannabis dependence, uncomplicated; F17.213 Nicotine dependence, cigarettes, with withdrawal; F19.24 Other psychoactive substance dependence with psychoactive substance-induced mood disorder; F25.9 Schizoaffective disorder, unspecified; F32.9 Major depressive disorder, single episode, unspecified; R40.4 Transient alteration of awareness; D64.9 Anemia, unspecified; J45.20 Mild intermittent asthma, uncomplicated; K40.90 Unilateral inguinal hernia, without obstruction or gangrene, not specified as recurrent; R63.4 Abnormal weight loss; Z68.24 Body mass index [BMI] 24.0-24.9, adult; R26.89 Other abnormalities of gait and mobility; Z99.89 Dependence on other enabling machines and devices; Z91.5 Personal history of self-harm; Z59.0 Homelessness
CPT/HCPCS: 36415; 80053; 81003; 85027; 86593

== ENCOUNTER 2018-12-10 10:24 | Inpatient (IN) | payer SELFPAY ==
[2018-12-10 10:57] VITALS: BMI 21.4
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
[2018-12-10] MEDS ORDERED: MAGNESIUM HYDROX 2400MG/30ML ORAL SUSPENSION 30 ML CUP PO PRN (12:02)
[2018-12-10] MEDS ORDERED: ACETAMINOPHEN 325 MG TABLET (FP) PO PRN (12:02)
[2018-12-10] MEDS ORDERED: BISMUTH SUBSALICYLATE 524 MG/30 ML UD PO PRN (12:02)
[2018-12-10] MEDS ORDERED: MAGNESIUM CITRATE 300 ML BOTTLE PO PRN (12:02)
[2018-12-10] MEDS ORDERED: NICOTINE POLACRILEX 4 MG GUM BUC PRN (12:02)
[2018-12-10] MEDS ORDERED: MENTHOL/PHENOL 1 EACH UD MM PRN (12:02)
[2018-12-10] MEDS ORDERED: MELATONIN 5 MG TABLETS PO PRN (12:02)
[2018-12-10] MEDS ORDERED: METHOCARBAMOL 500 MG TABLET PO PRN (12:02)
[2018-12-10] MEDS ORDERED: IBUPROFEN 400 MG TABLET (FP) PO PRN (12:02)
[2018-12-10] MEDS ORDERED: MAG HYDROX/AL HYDROX/SIMETH 30 ML UNIT-DOSE CUP PO PRN (12:02)
[2018-12-10] MEDS ORDERED: chlordiazePOXIDE HCL 25 MG CAPSULE PO PRN (12:02)
[2018-12-10] MEDS: chlordiazePOXIDE HCL 25 MG CAPSULE PO SCH ×2 (18:29→23:28)
[2018-12-10] MEDS: THIAMINE HCL 100 MG TABLET (FP) PO SCH (23:28)
[2018-12-11] MEDS: chlordiazePOXIDE HCL 25 MG CAPSULE PO SCH ×4 (05:34→22:26)
--- NOTE | 2018-12-11 09:34 | PN ---
S CIWA - CIWA Score Nausea/Vomitin-Mild Nausea/No Vomiting Muscle Tremors: 3 Anxiety: 2 Agitation: 2 Paroxysmal Sweats: 1-Minimal Palms Moist Orientation: 1-Uncertain about Date Tacttile Disturbances: 1-Very Mild Itch/Numbness Auditory Disturbances: 0-None Visual Disturbances: 0-None Headache: 1-Very Mild CIWA-Ar Total Score: 12 BHS Progress Note (SOAP) Subjective: less tremor than yesterday tolerate breakfast well ambulating on hallway anxiousness Objective: 12/11/18 09:35 Vital Signs Temperature 97.3 F L 12/11/18 09:27 Pulse Rate 77 12/11/18 09:27 Respiratory Rate 20 12/11/18 09:27 Blood Pressure 121/84 12/11/18 09:27 O2 Sat by Pulse Oximetry (%) lab pending Assessment: 12/11/18 09:35 alcohol withdrawal sx Plan: continue alcohol detox
[2018-12-11] MEDS ORDERED: PRENATAL VITAMINS W/ FOLIC ACID TABLET (FP) PO SCH (10:00)
[2018-12-11 10:50] LABS: MCH 29.6 pg (25.7-33.7); MCHC 32.9 g/dl (32.0-35.9); MEAN PLT VOLUME 7.6 fl (7.5-11.1); WHITE BLOOD COUNT 4.9 K/mm3 (4.0-10.0)
[2018-12-11 10:52] LABS: ALBUMIN 3.3 g/dl (3.4-5.0); BILIRUBIN,TOTAL 0.2 mg/dL (0.2-1); BLOOD UREA NITROGEN 10.4 mg/dL (7-18); CALCIUM 8.5 mg/dL (8.5-10.1); CREATININE 0.7 mg/dL (0.55-1.3); POTASSIUM 4.3 mmol/L (3.5-5.1); TOT PROT 6.3 g/dl (6.4-8.2)
[2018-12-11 11:18] LABS: HEMATOCRIT 45.3 % (35.4-49); HEMOGLOBIN 14.9 GM/dL (11.7-16.9); MEAN CELL VOLUME 89.9 fl (80-96); RBC 5.03 M/mm3 (4.00-5.60); RDW 14.7 % (11.9-15.9)
[2018-12-11 11:44] LABS: PLATELET COUNT 300 K/MM3 (134-434)
--- NOTE | 2018-12-11 15:09 | CONSULT ---
[facility] Psychiatric Consult - Data Date of interview: 12/11/18 Admission source: [facility] Identifying data: [facility] attempted to speak to patient three times concerning psychiatric consultation. Patient stated " I am too tired. we can talk later." Psychiatric consultation refused.
[2018-12-11] MEDS: THIAMINE HCL 100 MG TABLET (FP) PO SCH (22:25)
[2018-12-12] MEDS ORDERED: chlordiazePOXIDE HCL 25 MG CAPSULE PO SCH (05:00)
[2018-12-12 06:34] VITALS: BP 120/74; PULSE 76; TEMP 98.1
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
[2018-12-13] MEDS ORDERED: chlordiazePOXIDE HCL 10 MG CAPSULE PO PRN
[2018-12-13] MEDS ORDERED: chlordiazePOXIDE HCL 10 MG CAPSULE PO SCH (05:00)
[2018-12-14] MEDS ORDERED: chlordiazePOXIDE HCL 10 MG CAPSULE PO SCH (05:00)
[2018-12-15] MEDS ORDERED: chlordiazePOXIDE HCL 10 MG CAPSULE PO ONE (05:00)
== END 2018-12-12 08:20 | disposition home or self-care (01) | DRG 774 ==
LOC: YASAS 10:24 → UNDOADMIN 11:46 → Y3N 11:46
PROVIDERS: ADMIT Surgery; ATTEND Surgery
PROC: HZ2ZZZZ Detoxification Services for Substance Abuse Treatment (ICD-10-PCS; principal; 2018-12-10)
DX: F10.230 Alcohol dependence with withdrawal, uncomplicated (principal); F14.20 Cocaine dependence, uncomplicated; F12.20 Cannabis dependence, uncomplicated; F17.210 Nicotine dependence, cigarettes, uncomplicated; F19.24 Other psychoactive substance dependence with psychoactive substance-induced mood disorder; F32.9 Major depressive disorder, single episode, unspecified; J45.20 Mild intermittent asthma, uncomplicated; R63.4 Abnormal weight loss; Z68.21 Body mass index [BMI] 21.0-21.9, adult; Z91.5 Personal history of self-harm; Z59.0 Homelessness
CPT/HCPCS: 36415; 80053; 85027; 86593